=== PATIENT | female | born 1965 | race Caucasian/White ===

== ENCOUNTER 2016-10-16 13:20 | Emergency (ER) | payer OTHER ==
[~2016-10-16] VITALS: Ht 170.2 cm; Wt 56.7 kg
[~2016-10-16 13:20] MED LIST: DIAZ5TAB4 PO; LEVO500T8 PO; MIRT30TA6 PO; MORP30TA PO; PANT40TA5 PO; PROM25TA10 PO; TIZA4TAB PO; TRIA1CAP3 PO; VENL37.5 PO
[2016-10-16 14:35] LABS: BASO # 0.1 x10^3/uL (0.0-0.2); BASO % 1 % (0-3); EOS % 2 % (0-3); HEMATOCRIT 40.1 % (36.0-47.0); HEMOGLOBIN 13.8 g/dL (12.0-15.5); LYMPH # 1.8 x10^3/uL (1.0-4.8); LYMPH % 18 % (24-48); MEAN CORPUSCULAR HEMOGLOBIN 32 pg (25-35); MEAN CORPUSCULAR HGB CONC 35 g/dL (31-37); MEAN CORPUSCULAR VOLUME 93 fL (79-100); MONO % 8 % (0-9); NEUT % 72 % (31-73); PLATELET COUNT 310 x10^3/uL (140-400); RED CELL DISTRIBUTION WIDTH 14.6 % (11.5-14.5); WHITE BLOOD COUNT 9.5 x10^3/uL (4.0-11.0)
[2016-10-16] MEDS: MORPHINE SULFATE 4 MG/ML DISP.SYRIN. IV/SQ PRN ×2 (14:36→15:28)
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
[2016-10-16] MEDS ORDERED: CONTRAST GIVEN MC PRN (14:45)
[2016-10-16] MEDS ORDERED: IV NORMAL SALINE 1000ML BAG 1,000 ML IV SCH (14:45)
[2016-10-16] MEDS ORDERED: ONDANSETRON PF 4 MG/2 ML VIAL. IV ONE (14:45)
[2016-10-16 14:53] LABS: ALBUMIN/GLOBULIN RATIO 1.2 (1.0-1.7); GFR 58.2; TOTAL BILIRUBIN 0.3 mg/dL (0.2-1.0); TOTAL PROTEIN 7.3 g/dL (6.4-8.2)
[2016-10-16] MEDS ORDERED: IOHEXOL 300 MG/ML 75 ML VIAL IV ONE (15:00)
[2016-10-16] MEDS ORDERED: IOHEXOL 240 MG/ML 50ML VIAL. PO ONE (15:00)
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
--- NOTE | 2016-10-16 16:12 | RAD ---
CT scan of the abdomen and pelvis with contrast 10/16/2016 Clinical history: Abdominal pain with weight loss. History of Crohn's disease. Technique: After the oral and intravenous initiation contrast, contiguous, 5 mm axial sections were obtained through the abdomen and pelvis. 60 cc of Omnipaque 300 were administered intravenously during this examination. One or more of the following individualized dose reduction techniques were utilized for this study: 1. Automated exposure control. 2. Adjustment of the mA and/or kV according to patient size. 3. Use of iterative reconstruction technique. Findings: Comparison study is dated 08/02/2015. Images through the lung bases demonstrate minimal dependent subsegmental atelectasis bilaterally. The liver, spleen, adrenal glands and kidneys are within normal limits. Prominence of the main pancreatic duct is again seen. No acute focal abnormality of the pancreas is noted. Surgical clips are seen within the gallbladder fossa consistent with a cholecystectomy. Scattered atherosclerotic plaque formation is seen involving the abdominal aorta and its branches. The abdominal aorta tapers normally. The patient is post colectomy. An ileostomy is seen within the right lower quadrant abdomen. No free fluid or free air is seen within the abdomen. There is no evidence of bowel obstruction. Images through the pelvis demonstrate the urinary bladder distended with urine. No free fluid is seen. The patient is status post hysterectomy. No adnexal mass is noted. Mild S-shaped curvature of the thoracolumbar spine is seen. Degenerative changes are seen involving the lower thoracic and throughout the lumbar spine and both hips. Impression: No acute abnormality is seen.
[2016-10-16 17:30] VITALS: BP 134/79
== END 2016-10-16 17:44 | disposition home or self-care (01) ==
LOC: ER 13:20
DX: G89.29 Other chronic pain (principal); R10.84 Generalized abdominal pain; M54.9 Dorsalgia, unspecified; R07.81 Pleurodynia; R05 Cough; R11.0 Nausea; E87.6 Hypokalemia; M54.2 Cervicalgia; R50.9 Fever, unspecified; F43.10 Post-traumatic stress disorder, unspecified; J44.9 Chronic obstructive pulmonary disease, unspecified; G43.909 Migraine, unspecified, not intractable, without status migrainosus; K50.90 Crohn's disease, unspecified, without complications; I50.9 Heart failure, unspecified; Z90.49 Acquired absence of other specified parts of digestive tract; Z90.710 Acquired absence of both cervix and uterus; Z79.899 Other long term (current) drug therapy; Z87.19 Personal history of other diseases of the digestive system; Z93.2 Ileostomy status; Z88.6 Allergy status to analgesic agent; Z88.8 Allergy status to other drugs, medicaments and biological substances
CPT/HCPCS: 36415; 71010; 74177; 80053; 83690; 85027; 96361; 96374; 96375; 96376; 99285; J2270; J2405; J7030; Q9967

== ENCOUNTER 2017-11-10 12:42 | Emergency (ER) | payer MEDICARE, MEDICAID ==
[~2017-11-10] VITALS: Ht 172.7 cm; Wt 63.0 kg
[~2017-11-10 12:42] MED LIST changes: +AMOX875T PO; +METO5TAB PO; +ONDA4TAB10 SL; +TIOT18CA IH; +VARE1TAB21 PO; +VENL50TA PO; +VENTOLIN HFA18 GM INH
[2017-11-10 13:43] LABS: BILIRUBIN,URINE NEGATIVE (NEG); CLARITY,URINE CLEAR; COLOR,URINE YELLOW; NITRITE,URINE NEGATIVE (NEG); PROTEIN,URINE NEGATIVE (NEG-TRACE); UROBILINOGEN,URINE 0.2 mg/dL (0.2 mg/dL)
[2017-11-10 13:53] LABS: BACTERIA,URINE FEW /HPF (0-FEW); RBC,URINE 0 /HPF (0-2); SQUAMOUS EPITHELIAL CELL,UR FEW /LPF
--- NOTE | 2017-11-10 13:54 | PHYS DOC ---
Past Medical History Past Medical History: CHF, COPD, Glaucoma, High Cholesterol, Hypertension, Migraines, Pancreatitis, Other Additional Past Medical Histor: INTESTINAL BLOCKAGE, CROHNS, PTSD, RLS Past Surgical History: Cholecystectomy, Colectomy, , Hysterectomy Additional Past Surgical Histo: ILEOSTOMY, NECK SURGERY, "ISABEL HAD 16 SURGERIES. " Alcohol Use: Occasionally Drug Use: None, Cocaine Social History Narrative: clean "for years" from cocaine Adult General Chief Complaint Chief Complaint: ABDOMINAL PAIN HPI HPI 51-year-old female presents to ER with complaints of increase in her chronic abd pain over the past 3 wks. Pt has long hx of chronic abd pain associated with hx of Crohn's, pancreatitis, bowel resections, and ileostomy. Pt was seen at [facility] 3 wks ago for similar sxs. She reports in past wk she has had gradual worsening of sxs. She reports she has had N/V which is more dry heaving d/t decreased food/fld intake. She reports multiple episodes of loose/diarrhea output in ileostomy. She reports she has had generalized fatigue, decreased urinary output, and felt warm but hasn't checked her temperature. Review of Systems Review of Systems Constitutional: Denies fever or chills [] Eyes: Denies change in visual acuity, redness, or eye pain [] HENT: Denies nasal congestion or sore throat [] Respiratory: Denies cough or shortness of breath [] Cardiovascular: No additional information not addressed in HPI [] GI: Denies abdominal pain, nausea, vomiting, bloody stools or diarrhea [] : Denies dysuria or hematuria [] Musculoskeletal: Denies back pain or joint pain [] Integument: Denies rash or skin lesions [] Neurologic: Denies headache, focal weakness or sensory changes [] Endocrine: Denies polyuria or polydipsia [] All other systems were reviewed and found to be within normal limits, except as documented in this note. Current Medications Current Medications Current Medications Medications (Trade) Dose Ordered Sig/Leeroy Start Time Stop Time Status Last Admin Dose Admin Dicyclomine HCl (Bentyl) 20 mg 1X ONCE 11/10/17 14:00 11/10/17 14:01 DC 11/10/17 14:29 20 MG Ondansetron HCl (Zofran) 4 mg 1X ONCE 11/10/17 14:00 11/10/17 14:01 DC 11/10/17 14:29 4 MG Sodium Chloride 1,000 ml @ 1,000 mls/hr 1X ONCE 11/10/17 14:00 11/10/17 14:59 DC 11/10/17 14:29 1,000 MLS/HR Allergies Allergies Allergies Coded Allergies Type Severity Reaction Last Updated Verified aspirin Allergy Severe Anaphylaxis; TOLERATES IBUPROFEN 10/29/16 Yes Iodinated Contrast- Oral and IV Dye Allergy Intermediate Hives 02/26/17 Yes prochlorperazine Allergy Intermediate 09/02/15 Yes lorazepam Adverse Reaction Intermediate 02/26/17 Yes Corticosteroids (Glucocorticoids) Adverse Reaction Mild RESTLESS LEG 09/02/15 Yes fluticasone Adverse Reaction Mild 09/02/15 Yes salmeterol Adverse Reaction Mild 09/02/15 Yes Physical Exam Physical Exam Constitutional: Well developed, well nourished, no acute distress, non-toxic appearance. [] HENT: Normocephalic, atraumatic, bilateral external ears normal, mucous membranes pink/moist, no oral exudates, nose normal. [] Eyes: PERRLA, conjunctiva normal, no discharge. [] Neck: Normal range of motion, no tenderness, supple Cardiovascular:Heart rate regular rhythm, no murmur [] Lungs & Thorax: Bilateral breath sounds clear to auscultation. Resp. equal/ nonlabored Abdomen: Bowel sounds normal, soft, diffuse tenderness in rt upper abd into rt mid/lower and surrounding rt lower abd ileostomy- skin NL in color around ileostomy site with no erythema/drainage or swelling. No drainage in ileostomy bag. No abd distention. No palp. masses, no pulsatile masses. [] Skin: Warm, dry, no erythema, no rash. [] Back: No tenderness, full ROM Extremities: No tenderness, no cyanosis, no clubbing, ROM intact, no edema. [] Neurologic: Alert and oriented X 3, normal motor function, normal sensory function, no focal deficits noted. [] Psychologic: Affect normal, judgement normal, mood normal. [] Current Patient Data Vital Signs Vital Signs Date Time Temp Pulse Resp B/P (MAP) Pulse Ox O2 Delivery O2 Flow Rate FiO2 11/10/17 13:22 98.7 99 18 116/81 (93) 97 Room Air 98.7 Lab Values Laboratory Tests Test 11/10/17 13:25 11/10/17 14:35 Urine Collection Type Unknown Urine Color Yellow Urine Clarity Clear Urine pH 6.0 Urine Specific [place] 1.010 Urine Protein Negative mg/dL (NEG-TRACE) Urine Glucose (UA) Negative mg/dL (NEG) Urine Ketones (Stick) Negative mg/dL (NEG) Urine Blood Negative (NEG) Urine Nitrite Negative (NEG) Urine Bilirubin Negative (NEG) Urine Urobilinogen Dipstick 0.2 mg/dL (0.2 mg/dL) Urine Leukocyte Esterase Small (NEG) Urine RBC 0 /HPF (0-2) Urine WBC 5-10 /HPF (0-4) Urine Squamous Epithelial Cells Few /LPF Urine Bacteria Few /HPF (0-FEW) White Blood Count 8.1 x10^3/uL (4.0-11.0) Red Blood Count 4.61 x10^6/uL (3.50-5.40) Hemoglobin 15.3 g/dL (12.0-15.5) Hematocrit 43.9 % (36.0-47.0) Mean Corpuscular Volume 95 fL (79-100) Mean Corpuscular Hemoglobin 33 pg (25-35) Mean Corpuscular Hemoglobin Concent 35 g/dL (31-37) Red Cell Distribution Width 13.4 % (11.5-14.5) Platelet Count 344 x10^3/uL (140-400) Neutrophils (%) (Auto) 68 % (31-73) Lymphocytes (%) (Auto) 23 % (24-48) L Monocytes (%) (Auto) 7 % (0-9) Eosinophils (%) (Auto) 2 % (0-3) Basophils (%) (Auto) 0 % (0-3) Neutrophils # (Auto) 5.5 x10^3uL (1.8-7.7) Lymphocytes # (Auto) 1.8 x10^3/uL (1.0-4.8) Monocytes # (Auto) 0.6 x10^3/uL (0.0-1.1) Eosinophils # (Auto) 0.1 x10^3/uL (0.0-0.7) Basophils # (Auto) 0.0 x10^3/uL (0.0-0.2) Sodium Level 135 mmol/L (136-145) L Potassium Level 3.4 mmol/L (3.5-5.1) L Chloride Level 101 mmol/L (98-107) Carbon Dioxide Level 23 mmol/L (21-32) Anion Gap 11 (6-14) Blood Urea Nitrogen 12 mg/dL (7-20) Creatinine 1.2 mg/dL (0.6-1.0) H Estimated GFR (Cockcroft-Gault) 47.0 BUN/Creatinine Ratio 10 (6-20) Glucose Level 114 mg/dL (70-99) H Calcium Level 9.3 mg/dL (8.5-10.1) Magnesium Level 1.9 mg/dL (1.8-2.4) Total Bilirubin 0.5 mg/dL (0.2-1.0) Aspartate Amino Transferase (AST) 12 U/L (15-37) L Alanine Aminotransferase (ALT) 15 U/L (14-59) Alkaline Phosphatase 89 U/L (46-116) Total Protein 7.7 g/dL (6.4-8.2) Albumin 4.3 g/dL (3.4-5.0) Albumin/Globulin Ratio 1.3 (1.0-1.7) Lipase 128 U/L (73-393) Laboratory Tests 11/10/17 14:35 Laboratory Tests 11/10/17 14:35 EKG EKG [] Radiology/Procedures Radiology/Procedures [] Course & Med Decision Making Course & Med Decision Making 1450: This provider had initially examed pt and discussed plan of care with pt and her dgtr in law. With pt reporting her doctors had removed her off narcotics this provider started with IM Bentyl and IV zofran with flds. RN reported when she went to administer medications pt stated she did not want this provider caring for her any longer and that she wanted additional pain medication within 10 minutes or she would leave and go to another facility. This was discussed with Dr. Manzano and he will assume care of this pt- tests are pending. 15:27: I was asked to see this patient as the patient fired her mid-level provider when she was told she would not receive opiate pain medications. I reviewed the patient's records both from this hospital and [facility] in [place]. I interviewed and examined the patient very carefully. Her abdominal exam is completely benign. She has a right ileostomy that is draining what appears to be appropriate stool. She was evaluated at [facility] on October 17 for a similar presentation. At that visit, she was discharged home and again referred to surgeon and GI but she did not follow-up. She was prescribed tramadol according to the record but review of the [facility] opiate tracking system does not reveal that she fill this prescription. She is insistent that she did. The patient gives me a history of chronic abdominal pain for which she has been intermittently treated with opiates and sometimes with tramadol. The patient is not followed by a surgeon regularly or a GI doctor despite the fact that she has been referred several times according to the electronic medical record. When asked about this, the patient gives prolonged explanations of difficulty she is having in her life and that she is on unable to follow-up. She does state she ran out of her Zofran which she uses regularly for control of nausea a few days earlier. Her lab panel today is unremarkable along with her physical exam. There is no indication for CT scan. Her vital signs are normal. I advised the patient that I also did not treat chronic abdominal pain with opiate medications at which time the patient asks simply for a refill of her Zofran and some tramadol. I advised patient that tramadol is still an opiate medication. Ultimately, the patient is being discharged home. She is provided a prescription for her Zofran as well as a few tramadol for her pain. She is advised to establish care with the appropriate specialist as needed. She does have a primary care doctor in [place], [place] but states he will not prescribe her pain medications. She also states she has pending pain management appointments already scheduled. No acute findings on her workup today. She is discharged home. DO Mary Singletary Disclaimer Mary Disclaimer This electronic medical record was generated, in whole or in part, using a voice recognition dictation system. Departure Departure Referrals: MARY LY MD (PCP) Scripts Tramadol Hcl (TRAMADOL HCL) 50 Mg Tablet 50 MG PO Q12H PRN for severe pain, #30 TAB Prov: ANTWAN MANZANO DO 11/10/17 Ondansetron (ONDANSETRON ODT) 4 Mg Tab.rapdis 4 MG PO TID PRN for NAUSEA/VOMITING, #30 TAB 2 Refills Prov: ANTWAN MANZANO DO 11/10/17 REFFITTAJITH APRN Nov 10, 2017 13:54 ANTWAN MANZANO DO Nov 10, 2017 15:32
[2017-11-10] MEDS ORDERED: DICYCLOMINE 20 MG/2 ML AMPUL. IM ONE (14:00)
[2017-11-10] MEDS ORDERED: IV NORMAL SALINE 1000ML BAG 1,000 ML IV ONE (14:00)
[2017-11-10] MEDS ORDERED: ONDANSETRON PF 4 MG/2 ML VIAL. IV ONE (14:00)
[2017-11-10 14:40] LABS: BASO % 0 % (0-3); EOS # 0.1 x10^3/uL (0.0-0.7); EOS % 2 % (0-3); HEMATOCRIT 43.9 % (36.0-47.0); HEMOGLOBIN 15.3 g/dL (12.0-15.5); LYMPH # 1.8 x10^3/uL (1.0-4.8); LYMPH % 23 % (24-48); MEAN CORPUSCULAR HEMOGLOBIN 33 pg (25-35); MEAN CORPUSCULAR HGB CONC 35 g/dL (31-37); MEAN CORPUSCULAR VOLUME 95 fL (79-100); MONO # 0.6 x10^3/uL (0.0-1.1); MONO % 7 % (0-9); NEUT # 5.5 x10^3uL (1.8-7.7); NEUT % 68 % (31-73); PLATELET COUNT 344 x10^3/uL (140-400); RED BLOOD COUNT 4.61 x10^6/uL (3.50-5.40); RED CELL DISTRIBUTION WIDTH 13.4 % (11.5-14.5); WHITE BLOOD COUNT 8.1 x10^3/uL (4.0-11.0)
[2017-11-10 14:52] LABS: CALCIUM 9.3 mg/dL (8.5-10.1); CREATININE 1.2 mg/dL (0.6-1.0); POTASSIUM 3.4 mmol/L (3.5-5.1)
[2017-11-10 14:58] LABS: ALBUMIN 4.3 g/dL (3.4-5.0); ALBUMIN/GLOBULIN RATIO 1.3 (1.0-1.7); MAGNESIUM 1.9 mg/dL (1.8-2.4); TOTAL BILIRUBIN 0.5 mg/dL (0.2-1.0); TOTAL PROTEIN 7.7 g/dL (6.4-8.2)
[2017-11-10 15:20] VITALS: BP 108/69
[2017-11-10] MEDS ORDERED: ONDA4TAB12 PO (15:25)
[2017-11-10] MEDS ORDERED: TRAM50TA PO (15:25)
--- NOTE | 2017-11-10 17:35 | EKG ---
[facility] [address] [place] [address] Test Date: 2017-11-10 Test Time: 14:23:00 Pat Name: GARCIA LIZARRAGA Department: Room: Gender: F Transport Rn: : 1965 Requested By: AJITH SHARMA Order Number: [id number] Reading MD: Jerald Burnham MD Measurements Intervals [place] Rate: 81 P: 69 NC: 142 QRS: 94 QRSD: 78 T: 76 QT: 366 QTc: 430 Interpretive Statements SINUS RHYTHM Electronically Signed On 11-11-2017 12:32:18 CDT by Jerald Burnham MD
[2017-11-15] MEDS ORDERED: CYCL10TA2 PO (20:11)
[2017-11-15] MEDS ORDERED: [UNRECOGNIZED DRUG - OTHER] (20:11)
[2017-11-15] MEDS ORDERED: QUET25TA5 PO (20:11)
[2017-11-15] MEDS ORDERED: SERT50TA PO (20:11)
[2017-11-15] MEDS ORDERED: POTA10TA12 PO (20:11)
[2017-11-15] MEDS ORDERED: TRAZ-85 PO (20:11)
[2017-11-15] MEDS ORDERED: SUMA100T3 PO (20:11)
[2017-11-16] MEDS ORDERED: TRAZ-85 PO (01:29)
[2017-11-16] MEDS ORDERED: TRAM50TA PO (01:29)
== END 2017-11-10 15:35 | disposition home or self-care (01) ==
LOC: ER 12:42
DX: G89.29 Other chronic pain (principal); R10.84 Generalized abdominal pain; R11.2 Nausea with vomiting, unspecified; R19.7 Diarrhea, unspecified; E78.00 Pure hypercholesterolemia, unspecified; J44.9 Chronic obstructive pulmonary disease, unspecified; I11.0 Hypertensive heart disease with heart failure; I50.9 Heart failure, unspecified; G43.909 Migraine, unspecified, not intractable, without status migrainosus; R53.83 Other fatigue; K50.90 Crohn's disease, unspecified, without complications; F43.10 Post-traumatic stress disorder, unspecified; G25.81 Restless legs syndrome; Z90.49 Acquired absence of other specified parts of digestive tract; Z90.710 Acquired absence of both cervix and uterus; Z93.2 Ileostomy status; Z88.6 Allergy status to analgesic agent; Z88.8 Allergy status to other drugs, medicaments and biological substances; Z91.041 Radiographic dye allergy status
CPT/HCPCS: 36415; 80053; 81001; 83690; 83735; 85025; 87086; 93005; 96361; 96372; 96374; 99285; J0500; J2405; J7030

== ENCOUNTER 2017-11-12 17:43 | Inpatient (IN) | payer MEDICARE, MEDICAID ==
[~2017-11-12] VITALS: Ht 172.7 cm; Wt 61.2 kg
[~2017-11-12 17:43] MED LIST changes: +ONDA4TAB12 PO; +TRAM50TA PO
[2017-11-12] MEDS ORDERED: IV NORMAL SALINE 1000ML BAG 1,000 ML IV SCH (18:27)
[2017-11-12] MEDS ORDERED: DEXAMETHASONE SOD PHOS 4 MG/ML VIAL IV ONE (18:30)
[2017-11-12] MEDS ORDERED: IV NORMAL SALINE 1000ML BAG 1,000 ML IV ONE ×2 (18:30→20:30)
--- NOTE | 2017-11-12 18:32 | PHYS DOC ---
Past Medical History Past Medical History: CHF, COPD, Glaucoma, High Cholesterol, Hypertension, Migraines, Pancreatitis, Other Additional Past Medical Histor: INTESTINAL BLOCKAGE, CROHNS, PTSD, RLS Past Surgical History: Cholecystectomy, Colectomy, , Hysterectomy Additional Past Surgical Histo: ILEOSTOMY, NECK SURGERY, "ISABEL HAD 16 SURGERIES. " Smoking: Cigarettes, 1 Pack Per Day Additional Information: 10 ciggarettes a day Alcohol Use: Occasionally Drug Use: None, Cocaine Adult General Chief Complaint Chief Complaint: DIZZY/LIGHT HEADED HPI HPI Patient is a 51-year-old female who presents to the emergency department for evaluation. She states that for the past few days she has had several episodes of lightheadedness and dizziness, sometimes resulting in her body going limp, and her "eyes rolling back in her head", and she has had a few episodes of actual syncope. She denies any pain, although states she did strike her chest on the toilet in the bathroom and is having some sternal pain because of this. She does have a history of Crohn's disease and states that for the past year she has been having on and off black stools in her ostomy bag, and has been having some recently. She denies any fevers or chills, nausea, or vomiting. Nothing in particular seems to help improve, or worsen, her symptoms, although standing up and position changes do seem to worsen her dizziness. Notes from the patient recent ER visit for a few days ago, as well as her most recent hospitalization in May have been reviewed. Review of Systems Review of Systems Constitutional: Denies fever or chills [] Eyes: Denies change in visual acuity, redness, or eye pain [] HENT: Denies nasal congestion or sore throat [] Respiratory: Denies cough or shortness of breath [] Cardiovascular: The patient denies any shortness of breath, chest pain, palpitations, or orthopnea[] GI: Denies any new abdominal pain, nausea, vomiting, or diarrhea [] : Denies dysuria or hematuria [] Musculoskeletal: Denies back pain or joint pain [] Integument: Denies rash or skin lesions [] Neurologic: Denies headache, focal weakness or sensory changes [] Endocrine: Denies polyuria or polydipsia [] All other systems were reviewed and found to be within normal limits, except as documented in this note. Current Medications Current Medications Current Medications Medications (Trade) Dose Ordered Sig/Leeroy Start Time Stop Time Status Last Admin Dose Admin Dexamethasone Sodium Phosphate (Decadron) 10 mg 1X ONCE 11/12/17 18:30 11/12/17 18:31 DC Potassium Chloride/Sodium Chloride 1,000 ml @ 250 mls/hr 1X ONCE 11/12/17 19:30 11/12/17 23:29 Potassium Chloride (Klor-Con) 40 meq 1X ONCE 11/12/17 19:30 11/12/17 19:31 DC Sodium Chloride 1,000 ml @ 1,000 mls/hr Q1H 11/12/17 18:27 11/12/17 19:26 DC 11/12/17 19:05 1,000 MLS/HR Allergies Allergies Allergies Coded Allergies Type Severity Reaction Last Updated Verified aspirin Allergy Severe Anaphylaxis; TOLERATES IBUPROFEN 10/29/16 Yes Iodinated Contrast- Oral and IV Dye Allergy Intermediate Hives 02/26/17 Yes prochlorperazine Allergy Intermediate 09/02/15 Yes lorazepam Adverse Reaction Intermediate 02/26/17 Yes Corticosteroids (Glucocorticoids) Adverse Reaction Mild RESTLESS LEG 09/02/15 Yes fluticasone Adverse Reaction Mild 09/02/15 Yes salmeterol Adverse Reaction Mild 09/02/15 Yes Physical Exam Physical Exam PHYSICAL EXAM: CONSTITUTIONAL: Well developed, well nourished HEAD: normocephalic, atraumatic EENT: PERRL, EOMI. Conjunctivae appear only mildly pale, sclerae non-icteric; moist mucous membranes. NECK: Supple, non-tender; no meningismus. LUNGS: Lungs CTA, breathing even and unlabored. Normal air movement. HEART: Regular rate and rhythm, no murmur CHEST: No deformity; non-tender ABDOMEN: The abdomen is soft, there is mild diffuse tenderness to palpation without focal tenderness, rebound, or guarding. There is an ostomy in the right lower quadrant, normal bowel sounds are present, no masses or bruits. EXTREM: Normal ROM; no deformity, no calf tenderness. Normal pulses palpable in all extremities. There is no pedal edema. SKIN: No rash; no diaphoresis NEURO: Alert; normal speech and cognition; CN's grossly intact; strength grossly intact without focal deficit. BACK: No CVA TTP. Current Patient Data Vital Signs Vital Signs Date Time Temp Pulse Resp B/P (MAP) Pulse Ox O2 Delivery O2 Flow Rate FiO2 11/12/17 17:59 98.3 83 20 83/56 (65) 95 Room Air 98.3 Lab Values Laboratory Tests Test 11/12/17 18:40 White Blood Count 9.9 x10^3/uL (4.0-11.0) Red Blood Count 3.96 x10^6/uL (3.50-5.40) Hemoglobin 13.1 g/dL (12.0-15.5) Hematocrit 37.8 % (36.0-47.0) Mean Corpuscular Volume 96 fL (79-100) Mean Corpuscular Hemoglobin 33 pg (25-35) Mean Corpuscular Hemoglobin Concent 35 g/dL (31-37) Red Cell Distribution Width 13.0 % (11.5-14.5) Platelet Count 305 x10^3/uL (140-400) Neutrophils (%) (Auto) 57 % (31-73) Lymphocytes (%) (Auto) 30 % (24-48) Monocytes (%) (Auto) 9 % (0-9) Eosinophils (%) (Auto) 4 % (0-3) H Basophils (%) (Auto) 1 % (0-3) Neutrophils # (Auto) 5.6 x10^3uL (1.8-7.7) Lymphocytes # (Auto) 2.9 x10^3/uL (1.0-4.8) Monocytes # (Auto) 0.9 x10^3/uL (0.0-1.1) Eosinophils # (Auto) 0.4 x10^3/uL (0.0-0.7) Basophils # (Auto) 0.0 x10^3/uL (0.0-0.2) Prothrombin Time 11.5 SEC (11.7-14.0) L Prothrombin Time INR 0.9 (0.8-1.1) Sodium Level 132 mmol/L (136-145) L Potassium Level 2.9 mmol/L (3.5-5.1) *L Chloride Level 96 mmol/L (98-107) L Carbon Dioxide Level 23 mmol/L (21-32) Anion Gap 13 (6-14) Blood Urea Nitrogen 27 mg/dL (7-20) H Creatinine 3.4 mg/dL (0.6-1.0) H Estimated GFR (Cockcroft-Gault) 14.1 BUN/Creatinine Ratio 8 (6-20) Glucose Level 104 mg/dL (70-99) H Lactic Acid Level 2.1 mmol/L (0.4-2.0) H Calcium Level 9.1 mg/dL (8.5-10.1) Phosphorus Level 7.1 mg/dL (2.6-4.7) H Magnesium Level 2.1 mg/dL (1.8-2.4) Total Bilirubin 0.1 mg/dL (0.2-1.0) L Aspartate Amino Transferase (AST) 11 U/L (15-37) L Alanine Aminotransferase (ALT) 15 U/L (14-59) Alkaline Phosphatase 103 U/L (46-116) Creatine Kinase 152 U/L (26-192) Creatine Kinase MB (Mass) 2.0 ng/mL (0.0-3.6) Creatine Kinase MB Relative Index 1.3 % (0-4) Troponin I Quantitative < 0.017 ng/mL (0.000-0.055) AQ-Dmi-C-Type Natriuretic Peptide 52 pg/mL (0-124) Total Protein 6.7 g/dL (6.4-8.2) Albumin 3.5 g/dL (3.4-5.0) Albumin/Globulin Ratio 1.1 (1.0-1.7) Lipase 230 U/L (73-393) Thyroid Stimulating Hormone (TSH) 0.655 uIU/mL (0.358-3.74) Free Thyroxine 0.79 ng/dL (0.76-1.46) Laboratory Tests 11/12/17 18:40 Laboratory Tests 11/12/17 18:40 EKG EKG [Normal sinus rhythm at a rate of 80 beats for minute, normal axis, normal intervals, there are no acute ischemic ST/T changes.] Radiology/Procedures Radiology/Procedures [ER physician preliminary chest x-ray interpretation: No acute abnormality. No obvious sternal fracture noted on sternal x-ray.] Course & Med Decision Making Course & Med Decision Making Pertinent Labs and Imaging studies reviewed. (See chart for details) [7:35 PM: Pt condition remains stable. US currently pending. she appears to be in acute renal failure, renal function was normal 2 days ago. Aggressive IV hydration will be initiated. The patient declined Decadron, stating it causes restless leg syndrome and agitation. She does have a history of steroid use given her Crohn's disease, and adrenal insufficiency is on the differential. The patient declined corticosteroids. I discussed the case with the hospitalist and the patient be admitted for further evaluation and treatment.] Urinalysis will be followed by the admitting physician. CRITICAL CARE TIME: 45 Minutes, excluding any procedures and care of other patients. Dragon Disclaimer Dragon Disclaimer This electronic medical record was generated, in whole or in part, using a voice recognition dictation system. Departure Departure Impression: Primary Impression: Acute renal failure Additional Impressions: Hypokalemia Hypertension Disposition: 09 ADMITTED INPATIENT Admitting Physician: Kaila Watson Condition: GUARDED Referrals: MARY LY MD (PCP) Problem Qualifiers DAILY CORLEY MD Nov 12, 2017 18:32
[2017-11-12 18:50] LABS: BASO % 1 % (0-3); EOS # 0.4 x10^3/uL (0.0-0.7); EOS % 4 % (0-3); HEMATOCRIT 37.8 % (36.0-47.0); HEMOGLOBIN 13.1 g/dL (12.0-15.5); LYMPH # 2.9 x10^3/uL (1.0-4.8); LYMPH % 30 % (24-48); MEAN CORPUSCULAR HEMOGLOBIN 33 pg (25-35); MEAN CORPUSCULAR HGB CONC 35 g/dL (31-37); MEAN CORPUSCULAR VOLUME 96 fL (79-100); MONO # 0.9 x10^3/uL (0.0-1.1); MONO % 9 % (0-9); NEUT # 5.6 x10^3uL (1.8-7.7); NEUT % 57 % (31-73); PLATELET COUNT 305 x10^3/uL (140-400); RED BLOOD COUNT 3.96 x10^6/uL (3.50-5.40); WHITE BLOOD COUNT 9.9 x10^3/uL (4.0-11.0)
[2017-11-12 18:59] LABS: PROTHROMBIN TIME PATIENT 11.5 SEC (11.7-14.0)
[2017-11-12 19:17] LABS: ALBUMIN 3.5 g/dL (3.4-5.0); ALBUMIN/GLOBULIN RATIO 1.1 (1.0-1.7); CALCIUM 9.1 mg/dL (8.5-10.1); CREATININE 3.4 mg/dL (0.6-1.0); FREE T4 0.79 ng/dL (0.76-1.46); GFR 14.1; MAGNESIUM 2.1 mg/dL (1.8-2.4); PHOSPHORUS 7.1 mg/dL (2.6-4.7); THYROID STIM HORMONE (TSH) 0.655 uIU/mL (0.358-3.74); TOTAL BILIRUBIN 0.1 mg/dL (0.2-1.0); TOTAL PROTEIN 6.7 g/dL (6.4-8.2)
[2017-11-12 19:19] LABS: POTASSIUM 2.9 mmol/L (3.5-5.1)
[2017-11-12] MEDS ORDERED: POTASSIUM CHLORIDE 20 MEQ TABLET.ER. PO ONE (19:30)
[2017-11-12 19:53] LABS: BILIRUBIN,URINE NEGATIVE (NEG); CLARITY,URINE CLEAR; COLOR,URINE YELLOW; NITRITE,URINE NEGATIVE (NEG); PH,URINE 5.5; PROTEIN,URINE NEGATIVE (NEG-TRACE); UROBILINOGEN,URINE 0.2 mg/dL (0.2 mg/dL)
[2017-11-12 19:58] LABS: BACTERIA,URINE FEW /HPF (0-FEW); HYALINE CASTS, URINE MODERATE /HPF; RBC,URINE OCC /HPF (0-2); SQUAMOUS EPITHELIAL CELL,UR MOD /LPF
[2017-11-12] MEDS ORDERED: IV RINGERS,LACTATED 1000ML 1,000 ML IV ONE (20:00)
[2017-11-12] MEDS ORDERED: ONDANSETRON ODT 4 MG TAB.RAPDIS. PO PRN (20:15)
--- NOTE | 2017-11-12 20:24 | PDOC1 ---
History and Physical Date of Admission Date of Admission DATE: 11/12/17 TIME: 20:16 Identification/Chief Complaint Chief Complaint passed out Source Source: Chart review, Patient History of Present Illness History of Present Illness Ms. Moralez, is a 51-year-old female admit for passing out./ She describes having a headache, severe headache, then "lost control of her arms and legs" she reports that "her eyes rolled into the back of her head and she passed out" and that her body went limp she fell and struck her chest on the toilet, and now has reproducible chest pain. Past few days she has not felt with lightheadedness and dizziness, has had a lot of output from her ostomy and she thinks she might be dehydrated, and feels thirsty now. She does have a history of Crohn's disease and that has ostomy now. she reports some black stools and some heamturia that has persisted for some time, without hesitation or urgency or pain. . She denies any fevers or chills, nausea, or vomiting. Nothing in particular seems to help improve, or worsen, her symptoms Past Medical History Cardiovascular: CHF, HTN, Hyperlipidemia Pulmonary: Bronchitis, COPD GI: Inflam bowel disease, Other Musculoskeletal: Osteoarthritis Endocrine: No pertinent hx Dermatology: No pertinent hx Past Surgical History Past Surgical History: Cholecystectomy, Hysterectomy, Colon Resection Family History Family History: No Significant Social History Smoke: 1 pack per day ALCOHOL: rare Drugs: Cocaine Current Problem List Problem List Problems Medical Problems: (1) Acute renal failure Status: Acute (2) Hypertension Status: Acute (3) Hypokalemia Status: Acute Current Medications Current Medications Current Medications Sodium Chloride 1,000 ml @ 1,000 mls/hr 1X ONCE IV ; Start 11/12/17 at 18:30; Stop 11/12/17 at 19:29; Status DC Sodium Chloride 1,000 ml @ 1,000 mls/hr Q1H IV Last administered on 11/12/17at 19:05; Start 11/12/17 at 18:27; Stop 11/12/17 at 19:26; Status DC Dexamethasone Sodium Phosphate (Decadron) 10 mg 1X ONCE IV ; Start 11/12/17 at 18:30; Stop 11/12/17 at 18:31; Status DC Potassium Chloride (Klor-Con) 40 meq 1X ONCE PO ; Start 11/12/17 at 19:30; Stop 11/12/17 at 19:31; Status DC Potassium Chloride/Sodium Chloride 1,000 ml @ 250 mls/hr 1X ONCE IV ; Start at 19:30; Stop 11/12/17 at 23:29 Ringer's Solution 1,000 ml @ 150 mls/hr 1X ONCE IV ; Start 11/12/17 at 20:00; Stop 11/13/17 at 02:39 Active Scripts Active Tramadol Hcl 50 Mg Tablet 50 Mg PO Q12H PRN Ondansetron Odt (Ondansetron) 4 Mg Tab.rapdis 4 Mg PO TID PRN Metoclopramide Hcl 5 Mg Tablet 5 Mg PO QIDACHS Zofran Odt (Ondansetron) 4 Mg Tab.rapdis 1 Tab SL Q6HRS PRN Diazepam 5 Mg Tablet 5 Mg PO PRN Q6HRS PRN Reported Chantix (Varenicline Tartrate) 1 Mg Tablet 1 Mg PO DAILY Ventolin Hfa Inhaler (Albuterol Sulfate) 18 Gm Hfa.aer.ad 2 Puff INH Q4HRS PRN Spiriva (Tiotropium Van) 18 Mcg Cap.w.dev 1 Cap IH DAILY Venlafaxine Hcl 50 Mg Tablet 50 Mg PO TID Mirtazapine 30 Mg Tab.rapdis 30 Mg PO QHS Tizanidine Hcl 4 Mg Tablet 4 Mg PO PRN Q6HRS PRN Triamterene-Hctz 37.5-25 Mg Cp (Triamterene/Hydrochlorothiazid) 1 Each Capsule 1 Tab PO DAILY Morphine Sulfate 30 Mg Tablet 30 Mg PO PRN Q6HRS PRN Pantoprazole Sodium 40 Mg Tablet.dr 40 Mg PO DAILY Allergies Allergies: Coded Allergies: aspirin (Verified Allergy, Severe, Anaphylaxis; TOLERATES IBUPROFEN, ) Iodinated Contrast- Oral and IV Dye (Verified Allergy, Intermediate, Hives , 02/26/17) prochlorperazine (Verified Allergy, Intermediate, 09/02/15) lorazepam (Verified Adverse Reaction, Intermediate, 02/26/17) Corticosteroids (Glucocorticoids) (Verified Adverse Reaction, Mild, RESTLESS LEG, 09/02/15) fluticasone (Verified Adverse Reaction, Mild, 09/02/15) RESTLESS LEG salmeterol (Verified Adverse Reaction, Mild, 09/02/15) RESTLESS LEG ROS General: No: Chills, Night Sweats, Fatigue, Malaise, Appetite, Other PSYCHOLOGICAL ROS: No: Anxiety, Behavioral Disorder, Concentration difficultie , Decreased libido, Depression, Disorientation, Hallucinations, Hostility, Irritablity, Memory difficulties, Mood Swings, Obsessive thoughts, Physical abuse, Sexual abuse, Sleep disturbances, Suicidal ideation, Other Eyes: No Blurry vision, No Decreased vision, No Double vision, No Dry eyes, No Excessive tearing, No Eye Pain, No Itchy Eyes, No Loss of vision, No Photophobia , No Scotomata, No Uses contacts, No Uses glasses, No Other HEENT: YES: Heacaches; No: Visual Changes, Hearing change, Nasal congestion, Nasal discharge, Oral lesions, Sinus pain, Sore Throat, Epistaxis, Sneezing, Snoring, Tinnitus, Vertigo, Vocal changes, Other Respiratory: No: Cough, Hemoptysis, Orthopnea, Pleuritic Pain, Shortness of breath, SOB with excertion, Sputum Changes, Stridor, Tachypnea, Wheezing, Other Cardiovascular: No Chest Pain, No Palpitations, No Orthopnea, No Paroxysmal Noc. Dyspnea, No Edema, No Lt Headedness, No Other Gastrointestinal: Yes Nausea, Yes Abdominal Pain, Yes Other (gas); No Vomiting, No Diarrhea, No Constipation, No Melena, No Hematochezia Genitourinary: No Dysuria, No Frequency, No Incontinence, No Hematuria, No Retention, No Discharge, No Urgency, No Pain, No Flank Pain, No Other, No , No , No , No , No , No , No Musculoskeletal: No Gait Disturbance, No Joint Pain, No Joint Stiffness, No Joint Swelling, No Muscle Pain, No Muscular Weakness, No Pain In:, No Swelling In:, No Other Neurological: Yes Headaches, Yes Impaired Coord/balance, Yes Tremors, Yes Weakness, Yes Other ("eyes roll back and I pass out":); No Behavorial Changes, No Bowel/Bladder ControlChng, No Confusion, No Dizziness, No Gait Disturbance, No Memory Loss, No Numbness/Tingling, No Seizures, No Speech Problems, No Visual Changes Skin: Yes Dry Skin; No Eczema, No Hair Changes, No Lumps, No Mole Changes, No Mottling, No Nail Changes, No Pruritus, No Rash, No Skin Lesion Changes, No Other, No Acne Physical Exam General: Alert, Oriented X3, Cooperative, mild distress HEENT: Atraumatic, PERRLA, EOMI Lungs: Clear to auscultation, Normal air movement Heart: RRR, no thrills, no gallops, no murmurs Abdomen: Soft, Other (ostomy, liquid stool audible gas) Extremities: No clubbing, No edema Skin: No rashes, No significant lesion Neuro: Normal speech, Sensation intact Psych/Mental Status: Mental status NL, Mood NL Vitals Vitals Vital Signs Date Time Temp Pulse Resp B/P (MAP) Pulse Ox O2 Delivery O2 Flow Rate FiO2 11/12/17 17:59 98.3 83 20 83/56 (65) 95 Room Air 98.3 Labs Labs Laboratory Tests Test 11/12/17 18:40 11/12/17 19:40 White Blood Count 9.9 x10^3/uL (4.0-11.0) Red Blood Count 3.96 x10^6/uL (3.50-5.40) Hemoglobin 13.1 g/dL (12.0-15.5) Hematocrit 37.8 % (36.0-47.0) Mean Corpuscular Volume 96 fL (79-100) Mean Corpuscular Hemoglobin 33 pg (25-35) Mean Corpuscular Hemoglobin Concent 35 g/dL (31-37) Red Cell Distribution Width 13.0 % (11.5-14.5) Platelet Count 305 x10^3/uL (140-400) Neutrophils (%) (Auto) 57 % (31-73) Lymphocytes (%) (Auto) 30 % (24-48) Monocytes (%) (Auto) 9 % (0-9) Eosinophils (%) (Auto) 4 % (0-3) Basophils (%) (Auto) 1 % (0-3) Neutrophils # (Auto) 5.6 x10^3uL (1.8-7.7) Lymphocytes # (Auto) 2.9 x10^3/uL (1.0-4.8) Monocytes # (Auto) 0.9 x10^3/uL (0.0-1.1) Eosinophils # (Auto) 0.4 x10^3/uL (0.0-0.7) Basophils # (Auto) 0.0 x10^3/uL (0.0-0.2) Prothrombin Time 11.5 SEC (11.7-14.0) Prothromb Time International Ratio 0.9 (0.8-1.1) Sodium Level 132 mmol/L (136-145) Potassium Level 2.9 mmol/L (3.5-5.1) Chloride Level 96 mmol/L (98-107) Carbon Dioxide Level 23 mmol/L (21-32) Anion Gap 13 (6-14) Blood Urea Nitrogen 27 mg/dL (7-20) Creatinine 3.4 mg/dL (0.6-1.0) Estimated GFR (Cockcroft-Gault) 14.1 BUN/Creatinine Ratio 8 (6-20) Glucose Level 104 mg/dL (70-99) Lactic Acid Level 2.1 mmol/L (0.4-2.0) Calcium Level 9.1 mg/dL (8.5-10.1) Phosphorus Level 7.1 mg/dL (2.6-4.7) Magnesium Level 2.1 mg/dL (1.8-2.4) Total Bilirubin 0.1 mg/dL (0.2-1.0) Aspartate Amino Transf (AST/SGOT) 11 U/L (15-37) Alanine Aminotransferase (ALT/SGPT) 15 U/L (14-59) Alkaline Phosphatase 103 U/L (46-116) Creatine Kinase 152 U/L (26-192) Creatine Kinase MB (Mass) 2.0 ng/mL (0.0-3.6) Creatine Kinase MB Relative Index 1.3 % (0-4) Troponin I Quantitative < 0.017 ng/mL (0.000-0.055) EP-Vii-O-Type Natriuretic Peptide 52 pg/mL (0-124) Total Protein 6.7 g/dL (6.4-8.2) Albumin 3.5 g/dL (3.4-5.0) Albumin/Globulin Ratio 1.1 (1.0-1.7) Lipase 230 U/L (73-393) Thyroid Stimulating Hormone (TSH) 0.655 uIU/mL (0.358-3.74) Free Thyroxine 0.79 ng/dL (0.76-1.46) Urine Collection Type Unknown Urine Color Yellow Urine Clarity Clear Urine pH 5.5 Urine Specific [place] 1.015 Urine Protein Negative mg/dL (NEG-TRACE) Urine Glucose (UA) Negative mg/dL (NEG) Urine Ketones (Stick) Negative mg/dL (NEG) Urine Blood Negative (NEG) Urine Nitrite Negative (NEG) Urine Bilirubin Negative (NEG) Urine Urobilinogen Dipstick 0.2 mg/dL (0.2 mg/dL) Urine Leukocyte Esterase Trace (NEG) Urine RBC Occ /HPF (0-2) Urine WBC 1-4 /HPF (0-4) Urine Squamous Epithelial Cells Mod /LPF Urine Bacteria Few /HPF (0-FEW) Urine Hyaline Casts Moderate /HPF Urine Mucus Slight /LPF Laboratory Tests Test 11/12/17 18:40 11/12/17 19:40 White Blood Count 9.9 x10^3/uL (4.0-11.0) Red Blood Count 3.96 x10^6/uL (3.50-5.40) Hemoglobin 13.1 g/dL (12.0-15.5) Hematocrit 37.8 % (36.0-47.0) Mean Corpuscular Volume 96 fL (79-100) Mean Corpuscular Hemoglobin 33 pg (25-35) Mean Corpuscular Hemoglobin Concent 35 g/dL (31-37) Red Cell Distribution Width 13.0 % (11.5-14.5) Platelet Count 305 x10^3/uL (140-400) Neutrophils (%) (Auto) 57 % (31-73) Lymphocytes (%) (Auto) 30 % (24-48) Monocytes (%) (Auto) 9 % (0-9) Eosinophils (%) (Auto) 4 % (0-3) Basophils (%) (Auto) 1 % (0-3) Neutrophils # (Auto) 5.6 x10^3uL (1.8-7.7) Lymphocytes # (Auto) 2.9 x10^3/uL (1.0-4.8) Monocytes # (Auto) 0.9 x10^3/uL (0.0-1.1) Eosinophils # (Auto) 0.4 x10^3/uL (0.0-0.7) Basophils # (Auto) 0.0 x10^3/uL (0.0-0.2) Prothrombin Time 11.5 SEC (11.7-14.0) Prothromb Time International Ratio 0.9 (0.8-1.1) Sodium Level 132 mmol/L (136-145) Potassium Level 2.9 mmol/L (3.5-5.1) Chloride Level 96 mmol/L (98-107) Carbon Dioxide Level 23 mmol/L (21-32) Anion Gap 13 (6-14) Blood Urea Nitrogen 27 mg/dL (7-20) Creatinine 3.4 mg/dL (0.6-1.0) Estimated GFR (Cockcroft-Gault) 14.1 BUN/Creatinine Ratio 8 (6-20) Glucose Level 104 mg/dL (70-99) Lactic Acid Level 2.1 mmol/L (0.4-2.0) Calcium Level 9.1 mg/dL (8.5-10.1) Phosphorus Level 7.1 mg/dL (2.6-4.7) Magnesium Level 2.1 mg/dL (1.8-2.4) Total Bilirubin 0.1 mg/dL (0.2-1.0) Aspartate Amino Transf (AST/SGOT) 11 U/L (15-37) Alanine Aminotransferase (ALT/SGPT) 15 U/L (14-59) Alkaline Phosphatase 103 U/L (46-116) Creatine Kinase 152 U/L (26-192) Creatine Kinase MB (Mass) 2.0 ng/mL (0.0-3.6) Creatine Kinase MB Relative Index 1.3 % (0-4) Troponin I Quantitative < 0.017 ng/mL (0.000-0.055) MF-Vik-B-Type Natriuretic Peptide 52 pg/mL (0-124) Total Protein 6.7 g/dL (6.4-8.2) Albumin 3.5 g/dL (3.4-5.0) Albumin/Globulin Ratio 1.1 (1.0-1.7) Lipase 230 U/L (73-393) Thyroid Stimulating Hormone (TSH) 0.655 uIU/mL (0.358-3.74) Free Thyroxine 0.79 ng/dL (0.76-1.46) Urine Collection Type Unknown Urine Color Yellow Urine Clarity Clear Urine pH 5.5 Urine Specific [place] 1.015 Urine Protein Negative mg/dL (NEG-TRACE) Urine Glucose (UA) Negative mg/dL (NEG) Urine Ketones (Stick) Negative mg/dL (NEG) Urine Blood Negative (NEG) Urine Nitrite Negative (NEG) Urine Bilirubin Negative (NEG) Urine Urobilinogen Dipstick 0.2 mg/dL (0.2 mg/dL) Urine Leukocyte Esterase Trace (NEG) Urine RBC Occ /HPF (0-2) Urine WBC 1-4 /HPF (0-4) Urine Squamous Epithelial Cells Mod /LPF Urine Bacteria Few /HPF (0-FEW) Urine Hyaline Casts Moderate /HPF Urine Mucus Slight /LPF VTE Prophylaxis Ordered VTE Prophylaxis Devices: No VTE Pharmacological Prophylaxi: Yes Assessment/Plan Assessment/Plan syncope, with myoclonus, ? witnessed, acute renal failure, hyperphos and hypokalemia check renal US, hematuria, she reports longstanding, ISC prn, check renal US, may need uro consult UA pending tobacco use disorder with probable hx of COPD, nebs, smoking cessation, patch and gum ordered diarrhea from ostomy, NOS' admit ESTUARDO XIONG MD Nov 12, 2017 20:24
[2017-11-12] MEDS ORDERED: ALBUTEROL SULFATE 2.5 MG/3 ML NEBU. NEB PRN (20:30)
[2017-11-12] MEDS ORDERED: NICOTINE POLACRILEX 2MG GUM PACKAGE of 12. BC PRN (20:30)
[2017-11-12] MEDS ORDERED: NICOTINE 21MG PATCH. TD PRN (20:30)
[2017-11-12] MEDS ORDERED: VENLAFAXINE 50 MG TABLET. PO SCH (21:00)
[2017-11-12] MEDS ORDERED: MIRTAZAPINE 15 MG TABLET PO SCH (21:00)
[2017-11-12] MEDS ORDERED: METOCLOPRAMIDE 5 MG TABLET. PO SCH (21:00)
--- NOTE | 2017-11-12 22:11 | RAD ---
Examination: Ultrasound kidneys HISTORY: History of blood in the urine, acute renal failure COMPARISON: None available Findings: The right kidney measures 9.9 x 4.9 x 4.8 cm. The left kidney measures 11.2 x 4.0 x 4.3 cm. The visualized aorta, IVC appear within normal limits of dimension. No evidence of hydronephrosis. Bilateral ureteral jets identified. Urinary bladder is mildly distended. IMPRESSION: 1. Unremarkable visualized exam. Electronically signed by: Silver Marr MD (11/12/2017 10:08 PM) [facility]
[2017-11-12] MEDS ORDERED: QUET50TA5 PO (22:33)
[2017-11-12] MEDS ORDERED: SERT25TA PO (22:33)
[2017-11-12] MEDS ORDERED: GABA-586 PO (22:33)
[2017-11-12] MEDS ORDERED: SUMA100T4 PO (22:33)
[2017-11-12] MEDS ORDERED: QUET25TA5 PO (22:33)
[2017-11-12] MEDS: traMADol 50 MG TABLET PO PRN (22:36)
[2017-11-12] MEDS: diazePAM 5 MG TABLET PO PRN (22:44)
[2017-11-12 23:00] VITALS: BP 95/54
[2017-11-12] MEDS ORDERED: SUMAtriptan SUCCINATE 100 MG TABLET PO PRN (23:15)
[2017-11-12] MEDS ORDERED: ZOLPIDEM 5 MG TABLET. PO PRN (23:30)
[2017-11-13] VITALS (11 sets, daily range): BP systolic 87–102; BP diastolic 54–72
--- NOTE | 2017-11-13 01:17 | RAD ---
Sternum AP lateral x-rays 2 views HISTORY: Trauma, fall, sternal pain. FINDINGS: Somewhat limited visualization of the sternum and manubrium on the frontal film due to summation density of the overlapping ribs, although the combined AP and lateral x-rays demonstrate no fracture or dislocation of the sternum and manubrium. Given obliquity of the AP film there may be limited assessment for mild distraction of the sternoclavicular joints. IMPRESSION: No acute osseous injury. AP chest x-ray HISTORY: Fall, midsternal chest pain. FINDINGS: Heart size is normal. Mediastinal silhouette is normal. No pneumothorax, pulmonary opacities or pleural effusions. Bones are unremarkable. IMPRESSION: No acute process. Electronically signed by: Kobe Myers MD (11/13/2017 1:14 AM) [id number]
[2017-11-13] MEDS: tiZANidine 4 MG TABLET. PO PRN ×3 (05:01→23:38)
[2017-11-13] MEDS: traMADol 50 MG TABLET PO PRN ×2 (05:01→18:40)
--- NOTE | 2017-11-13 07:33 | EKG ---
[facility] [address] [place] [address] Test Date: 2017-11-12 Test Time: 19:20:52 Pat Name: GARCIA LIZARRAGA Department: Room: 526 1 Gender: F Commissions Coordinator: : 1965 Requested By: DAILY CORLEY Order Number: [id number] Reading MD: Jerald Burnham MD Measurements Intervals [place] Rate: 80 P: 69 ID: [id number] QRS: 80 QRSD: 82 T: 53 QT: 398 QTc: 463 Interpretive Statements SINUS RHYTHM Electronically Signed On 11-13-2017 8:58:20 CDT by Jerald Burnham MD
[2017-11-13] MEDS: IPRATRPIUM/ALBUTEROL 0.5/2.5MG 3 ML NEBU. NEB SCH ×2 (08:00→12:00)
[2017-11-13 08:01] LABS: BASO % 1 % (0-3); EOS # 0.2 x10^3/uL (0.0-0.7); EOS % 3 % (0-3); HEMATOCRIT 34.3 % (36.0-47.0); HEMOGLOBIN 11.8 g/dL (12.0-15.5); LYMPH # 2.3 x10^3/uL (1.0-4.8); LYMPH % 31 % (24-48); MEAN CORPUSCULAR HEMOGLOBIN 33 pg (25-35); MEAN CORPUSCULAR HGB CONC 35 g/dL (31-37); MEAN CORPUSCULAR VOLUME 96 fL (79-100); MONO # 0.6 x10^3/uL (0.0-1.1); MONO % 9 % (0-9); NEUT # 4.2 x10^3uL (1.8-7.7); NEUT % 56 % (31-73); PLATELET COUNT 259 x10^3/uL (140-400); RED BLOOD COUNT 3.58 x10^6/uL (3.50-5.40); RED CELL DISTRIBUTION WIDTH 12.8 % (11.5-14.5); WHITE BLOOD COUNT 7.5 x10^3/uL (4.0-11.0)
[2017-11-13 08:19] LABS: CALCIUM 7.8 mg/dL (8.5-10.1); CREATININE 1.4 mg/dL (0.6-1.0); GFR 39.3; POTASSIUM 3.7 mmol/L (3.5-5.1)
[2017-11-13] MEDS: SERTRALINE 25 MG TABLET. PO SCH (08:37)
[2017-11-13] MEDS: GABAPENTIN 100 MG CAPSULE. PO SCH ×3 (08:37→20:53)
[2017-11-13] MEDS: QUEtiapine 25 MG TABLET. PO SCH ×2 (08:37→14:53)
[2017-11-13] MEDS: PANTOPRAZOLE 40 MG TABLET.DR. PO SCH (08:37)
[2017-11-13] MEDS ORDERED: TRIAMTERENE/HCTZ 37.5/25MG TABLET. PO SCH (09:00)
[2017-11-13] MEDS ORDERED: SERTRALINE 50 MG TABLET. PO SCH (09:00)
[2017-11-13] MEDS ORDERED: NON FORMULARY ITEM (Tiotropium Bromide (Spiriva) 1 CAP) IH SCH (09:00)
--- NOTE | 2017-11-13 10:02 | PDOC2 ---
CONSULT Date of Consult Date of Consult DATE: 11/13/17 TIME: 09:48 Reason for Consult Reason for Consult: PATRIA Source Source: Chart review, Patient History of Present Illness Reason for Visit: Patient is a 51-year-old female who presented to the ED with c/o several episodes of lightheadedness and dizziness,going on for the past few days , sometimes resulting in her body going limp, and her "eyes rolling back in her head", with few episodes of actual syncope. Standing up and position changes do seem to worsen her dizziness. She denies any pain, although states she did strike her chest on the toilet in the bathroom and is having some sternal pain because of this. She have a history of Crohn's disease and states that for the past year she has been having on and off black stools in her ostomy bag, and has been having some recently. She denies any fevers or chills, nausea, or vomiting. Most recent Hosp May 2017 States she has Chronic pains- Spine, pancreas, Henia. Has been taking Ibuprofen OTC for many years - 200 mg 4 times/day every day She states for past 4-5 Months her UOP declines Intermittently, she has minimum UOP . Denies any Dysuria, Hmeaturia. Used to have UTI's when she was Younger. No Hx of Kidney stones Aggressive IV in ER , she declined steroids Past Medical History Cardiovascular: CHF, HTN, Hyperlipidemia Pulmonary: Bronchitis, COPD GI: Inflam bowel disease, Other Musculoskeletal: Osteoarthritis Endocrine: No pertinent hx Dermatology: No pertinent hx Past Surgical History Past Surgical History: Cholecystectomy, Hysterectomy, Colon Resection Family History Family History: No Significant Social History 1 pack per day ALCOHOL: rare Drugs: Cocaine Current Problem List Problem List Problems Medical Problems: (1) Acute renal failure Status: Acute (2) Hypertension Status: Acute (3) Hypokalemia Status: Acute Current Medications Current Medications Current Medications Sodium Chloride 1,000 ml @ 1,000 mls/hr 1X ONCE IV Last administered on at 20:12; Start 11/12/17 at 18:30; Stop 11/12/17 at 19:29; Status DC Sodium Chloride 1,000 ml @ 1,000 mls/hr Q1H IV Last administered on 11/12/17at 19:05; Start 11/12/17 at 18:27; Stop 11/12/17 at 19:26; Status DC Dexamethasone Sodium Phosphate (Decadron) 10 mg 1X ONCE IV ; Start 11/12/17 at 18:30; Stop 11/12/17 at 18:31; Status DC Potassium Chloride (Klor-Con) 40 meq 1X ONCE PO Last administered on 11/12/17at 20:12; Start 11/12/17 at 19:30; Stop 11/12/17 at 19:31; Status DC Potassium Chloride/Sodium Chloride 1,000 ml @ 250 mls/hr 1X ONCE IV Last administered on 11/12/17at 20:11; Start 11/12/17 at 19:30; Stop 11/12/17 at 23:29; Status DC Ringer's Solution 1,000 ml @ 150 mls/hr 1X ONCE IV ; Start 11/12/17 at 20:00; Stop 11/13/17 at 02:39; Status DC Diazepam (Valium) 5 mg PRN Q6HRS PRN PO ANXIETY / AGITATION Last administered on 11/12/17at 22:44; Start 11/12/17 at 20:15 Metoclopramide HCl (Reglan) 5 mg QIDACHS PO ; Start 11/12/17 at 21:00; Stop at 23:24; Status DC Ondansetron HCl (Zofran Odt) 4 mg PRN TID PRN PO NAUSEA/VOMITING; Start at 20:15 Pantoprazole Sodium (Protonix) 40 mg DAILYAC PO Last administered on 11/13/17at 08:37; Start 11/13/17 at 07:30 Tramadol HCl (Ultram) 50 mg PRN Q6HRS PRN PO pain Last administered on at 05:01; Start 11/12/17 at 20:15 Albuterol Sulfate (Ventolin Neb Soln) 2.5 mg PRN Q4HRS PRN NEB SHORTNESS OF BREATH; Start 11/12/17 at 20:30 Mirtazapine (Remeron) 30 mg QHS PO ; Start 11/12/17 at 21:00; Stop 11/12/17 at 23: 24; Status DC Non-Formulary Medication (Tiotropium Eddy (Spiriva)) 1 cap DAILY IH ; Start 11/13/17 at 09:00; Status UNV Tizanidine HCl (Zanaflex) 4 mg PRN Q6HRS PRN PO MUSCLE SPASMS Last administered on 11/13/17at 05:01; Start 11/12/17 at 20:30 Triamterene/HCTZ (Maxzide 37.5/ 25mg) 1 tab DAILY PO ; Start 11/13/17 at 09:00; Stop 11/13/17 at 09:00; Status DC Venlafaxine HCl (Effexor) 50 mg TID PO ; Start 11/12/17 at 21:00; Stop 11/12/17 at 23:24; Status DC Sertraline HCl (Zoloft) 50 mg DAILY PO ; Start 11/13/17 at 09:00; Stop 11/13/17 at 09:00; Status DC Nicotine (Nicoderm Cq 21mg) 1 patch PRN DAILY PRN TD SMOKING CESSATION 1ST CHOICE; Start 11/12/17 at 20:30 Nicotine Polacrilex (Nicorette Gum) 1 each PRN Q1HR PRN BC SMOKING CESSATION 2ND CHOICE; Start 11/12/17 at 20:30 Sodium Chloride 1,000 ml @ 100 mls/hr 1X ONCE IV Last administered on at 22:44; Start 11/12/17 at 20:30; Stop 11/13/17 at 06:29; Status DC Albuterol/ Ipratropium (Duoneb) 3 ml RTQID NEB ; Start 11/13/17 at 08:00 Sumatriptan Succinate (Imitrex) 100 mg PRN DAILY PRN PO MIGRAINE HEADACHE; Start 11/12/17 at 23:15 Gabapentin (Neurontin) 100 mg TID PO Last administered on 11/13/17at 08:37; Start 11/13/17 at 09:00 Quetiapine Fumarate (SEROquel) 25 mg TID PO Last administered on 11/13/17at 08:37 ; Start 11/13/17 at 09:00 Quetiapine Fumarate (SEROquel) 50 mg QHS PO ; Start 11/13/17 at 21:00 Sertraline HCl (Zoloft) 75 mg DAILY PO Last administered on 11/13/17at 08:37; Start 11/13/17 at 09:00 Zolpidem Tartrate (Ambien) 5 mg PRN QHS PRN PO INSOMNIA; Start 11/12/17 at 23:30 Active Scripts Active Tramadol Hcl 50 Mg Tablet 50 Mg PO Q12H PRN Ondansetron Odt (Ondansetron) 4 Mg Tab.rapdis 4 Mg PO TID PRN Zofran Odt (Ondansetron) 4 Mg Tab.rapdis 1 Tab SL Q6HRS PRN Diazepam 5 Mg Tablet 5 Mg PO PRN Q6HRS PRN Reported Gabapentin 300 Mg Capsule 300 Mg PO TID Sumatriptan Succinate 100 Mg Tablet 100 Mg PO ONCE PRN Seroquel (Quetiapine Fumarate) 50 Mg Tablet 1 Tab PO QHS Seroquel (Quetiapine Fumarate) 25 Mg Tablet 1 Tab PO TID Zoloft (Sertraline Hcl) 25 Mg Tablet 75 Mg PO DAILY Chantix (Varenicline Tartrate) 1 Mg Tablet 1 Mg PO DAILY Ventolin Hfa Inhaler (Albuterol Sulfate) 18 Gm Hfa.aer.ad 2 Puff INH Q4HRS PRN Spiriva (Tiotropium Eddy) 18 Mcg Cap.w.dev 1 Cap IH DAILY Tizanidine Hcl 4 Mg Tablet 4 Mg PO PRN Q6HRS PRN Morphine Sulfate 30 Mg Tablet 30 Mg PO PRN Q6HRS PRN Pantoprazole Sodium 40 Mg Tablet.dr 40 Mg PO DAILY Allergies Allergies: Coded Allergies: aspirin (Verified Allergy, Severe, Anaphylaxis; TOLERATES IBUPROFEN, ) Iodinated Contrast- Oral and IV Dye (Verified Allergy, Intermediate, Hives , 02/26/17) prochlorperazine (Verified Allergy, Intermediate, 09/02/15) metoclopramide (Verified Allergy, Mild, restless leg, 11/12/17) venlafaxine (Verified Allergy, Mild, 11/12/17) lorazepam (Verified Adverse Reaction, Intermediate, 02/26/17) Corticosteroids (Glucocorticoids) (Verified Adverse Reaction, Mild, RESTLESS LEG, 09/02/15) fluticasone (Verified Adverse Reaction, Mild, 09/02/15) RESTLESS LEG salmeterol (Verified Adverse Reaction, Mild, 09/02/15) RESTLESS LEG ROS Review of System As per HPI Physical Exam Physical Exam General: NAD HEENT: neck supple Lungs- CTA, Non labored Heart: RRR, no thrills, no gallops, no murmurs Abdomen: Soft, ostomy, liquid stool Extremities: No edema Skin: No rashes Neuro: Normal speech, Sensation intact Psych/Mental Status: Mental status NL, Mood NL - No CVA/ cp TENDERNESS, nO GALLAGHER Vital Signs Vital Signs Date Time Temp Pulse Resp B/P (MAP) Pulse Ox O2 Delivery O2 Flow Rate FiO2 11/13/17 07:00 97.8 79 87/60 (69) 92 97.8 11/13/17 06:05 Room Air 11/13/17 03:00 18 Assessment & Plan PATRIA - Likely pre-renal /?diarrhea from ostomy Renal US normal , UA Normal - No sign micr hematuria or UTI Renal function improving with Hydration E-lytes and acid base stable Significant Hx of care home use of NSAID's Hypokalemia- Normal today Hyperphosphatemia/ Hypocalcemia - repeat labs in am 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 her previous labs available in our system No DM/HTN Syncope -Aggressive hydration in ER Managed by primary Discussed with Pt Labs Labs Laboratory Tests Test 11/12/17 18:40 11/12/17 19:40 11/13/17 07:39 White Blood Count 9.9 x10^3/uL (4.0-11.0) 7.5 x10^3/uL (4.0-11.0) Red Blood Count 3.96 x10^6/uL (3.50-5.40) 3.58 x10^6/uL (3.50-5.40) Hemoglobin 13.1 g/dL (12.0-15.5) 11.8 g/dL (12.0-15.5) Hematocrit 37.8 % (36.0-47.0) 34.3 % (36.0-47.0) Mean Corpuscular Volume 96 fL (79-100) 96 fL (79-100) Mean Corpuscular Hemoglobin 33 pg (25-35) 33 pg (25-35) Mean Corpuscular Hemoglobin Concent 35 g/dL (31-37) 35 g/dL (31-37) Red Cell Distribution Width 13.0 % (11.5-14.5) 12.8 % (11.5-14.5) Platelet Count 305 x10^3/uL (140-400) 259 x10^3/uL (140-400) Neutrophils (%) (Auto) 57 % (31-73) 56 % (31-73) Lymphocytes (%) (Auto) 30 % (24-48) 31 % (24-48) Monocytes (%) (Auto) 9 % (0-9) 9 % (0-9) Eosinophils (%) (Auto) 4 % (0-3) 3 % (0-3) Basophils (%) (Auto) 1 % (0-3) 1 % (0-3) Neutrophils # (Auto) 5.6 x10^3uL (1.8-7.7) 4.2 x10^3uL (1.8-7.7) Lymphocytes # (Auto) 2.9 x10^3/uL (1.0-4.8) 2.3 x10^3/uL (1.0-4.8) Monocytes # (Auto) 0.9 x10^3/uL (0.0-1.1) 0.6 x10^3/uL (0.0-1.1) Eosinophils # (Auto) 0.4 x10^3/uL (0.0-0.7) 0.2 x10^3/uL (0.0-0.7) Basophils # (Auto) 0.0 x10^3/uL (0.0-0.2) 0.0 x10^3/uL (0.0-0.2) Prothrombin Time 11.5 SEC (11.7-14.0) Prothromb Time International Ratio 0.9 (0.8-1.1) Sodium Level 132 mmol/L (136-145) 142 mmol/L (136-145) Potassium Level 2.9 mmol/L (3.5-5.1) 3.7 mmol/L (3.5-5.1) Chloride Level 96 mmol/L (98-107) 110 mmol/L (98-107) Carbon Dioxide Level 23 mmol/L (21-32) 23 mmol/L (21-32) Anion Gap 13 (6-14) 9 (6-14) Blood Urea Nitrogen 27 mg/dL (7-20) 20 mg/dL (7-20) Creatinine 3.4 mg/dL (0.6-1.0) 1.4 mg/dL (0.6-1.0) Estimated GFR (Cockcroft-Gault) 14.1 39.3 BUN/Creatinine Ratio 8 (6-20) Glucose Level 104 mg/dL (70-99) 101 mg/dL (70-99) Lactic Acid Level 2.1 mmol/L (0.4-2.0) 0.3 mmol/L (0.4-2.0) Calcium Level 9.1 mg/dL (8.5-10.1) 7.8 mg/dL (8.5-10.1) Phosphorus Level 7.1 mg/dL (2.6-4.7) Magnesium Level 2.1 mg/dL (1.8-2.4) Total Bilirubin 0.1 mg/dL (0.2-1.0) Aspartate Amino Transf (AST/SGOT) 11 U/L (15-37) Alanine Aminotransferase (ALT/SGPT) 15 U/L (14-59) Alkaline Phosphatase 103 U/L (46-116) Creatine Kinase 152 U/L (26-192) Creatine Kinase MB (Mass) 2.0 ng/mL (0.0-3.6) Creatine Kinase MB Relative Index 1.3 % (0-4) Troponin I Quantitative < 0.017 ng/mL (0.000-0.055) CW-Rkc-N-Type Natriuretic Peptide 52 pg/mL (0-124) Total Protein 6.7 g/dL (6.4-8.2) Albumin 3.5 g/dL (3.4-5.0) Albumin/Globulin Ratio 1.1 (1.0-1.7) Lipase 230 U/L (73-393) Thyroid Stimulating Hormone (TSH) 0.655 uIU/mL (0.358-3.74) Free Thyroxine 0.79 ng/dL (0.76-1.46) Urine Collection Type Unknown Urine Color Yellow Urine Clarity Clear Urine pH 5.5 Urine Specific [place] 1.015 Urine Protein Negative mg/dL (NEG-TRACE) Urine Glucose (UA) Negative mg/dL (NEG) Urine Ketones (Stick) Negative mg/dL (NEG) Urine Blood Negative (NEG) Urine Nitrite Negative (NEG) Urine Bilirubin Negative (NEG) Urine Urobilinogen Dipstick 0.2 mg/dL (0.2 mg/dL) Urine Leukocyte Esterase Trace (NEG) Urine RBC Occ /HPF (0-2) Urine WBC 1-4 /HPF (0-4) Urine Squamous Epithelial Cells Mod /LPF Urine Bacteria Few /HPF (0-FEW) Urine Hyaline Casts Moderate /HPF Urine Mucus Slight /LPF Laboratory Tests Test 11/12/17 18:40 11/12/17 19:40 11/13/17 07:39 White Blood Count 9.9 x10^3/uL (4.0-11.0) 7.5 x10^3/uL (4.0-11.0) Red Blood Count 3.96 x10^6/uL (3.50-5.40) 3.58 x10^6/uL (3.50-5.40) Hemoglobin 13.1 g/dL (12.0-15.5) 11.8 g/dL (12.0-15.5) Hematocrit 37.8 % (36.0-47.0) 34.3 % (36.0-47.0) Mean Corpuscular Volume 96 fL (79-100) 96 fL (79-100) Mean Corpuscular Hemoglobin 33 pg (25-35) 33 pg (25-35) Mean Corpuscular Hemoglobin Concent 35 g/dL (31-37) 35 g/dL (31-37) Red Cell Distribution Width 13.0 % (11.5-14.5) 12.8 % (11.5-14.5) Platelet Count 305 x10^3/uL (140-400) 259 x10^3/uL (140-400) Neutrophils (%) (Auto) 57 % (31-73) 56 % (31-73) Lymphocytes (%) (Auto) 30 % (24-48) 31 % (24-48) Monocytes (%) (Auto) 9 % (0-9) 9 % (0-9) Eosinophils (%) (Auto) 4 % (0-3) 3 % (0-3) Basophils (%) (Auto) 1 % (0-3) 1 % (0-3) Neutrophils # (Auto) 5.6 x10^3uL (1.8-7.7) 4.2 x10^3uL (1.8-7.7) Lymphocytes # (Auto) 2.9 x10^3/uL (1.0-4.8) 2.3 x10^3/uL (1.0-4.8) Monocytes # (Auto) 0.9 x10^3/uL (0.0-1.1) 0.6 x10^3/uL (0.0-1.1) Eosinophils # (Auto) 0.4 x10^3/uL (0.0-0.7) 0.2 x10^3/uL (0.0-0.7) Basophils # (Auto) 0.0 x10^3/uL (0.0-0.2) 0.0 x10^3/uL (0.0-0.2) Prothrombin Time 11.5 SEC (11.7-14.0) Prothromb Time International Ratio 0.9 (0.8-1.1) Sodium Level 132 mmol/L (136-145) 142 mmol/L (136-145) Potassium Level 2.9 mmol/L (3.5-5.1) 3.7 mmol/L (3.5-5.1) Chloride Level 96 mmol/L (98-107) 110 mmol/L (98-107) Carbon Dioxide Level 23 mmol/L (21-32) 23 mmol/L (21-32) Anion Gap 13 (6-14) 9 (6-14) Blood Urea Nitrogen 27 mg/dL (7-20) 20 mg/dL (7-20) Creatinine 3.4 mg/dL (0.6-1.0) 1.4 mg/dL (0.6-1.0) Estimated GFR (Cockcroft-Gault) 14.1 39.3 BUN/Creatinine Ratio 8 (6-20) Glucose Level 104 mg/dL (70-99) 101 mg/dL (70-99) Lactic Acid Level 2.1 mmol/L (0.4-2.0) 0.3 mmol/L (0.4-2.0) Calcium Level 9.1 mg/dL (8.5-10.1) 7.8 mg/dL (8.5-10.1) Phosphorus Level 7.1 mg/dL (2.6-4.7) Magnesium Level 2.1 mg/dL (1.8-2.4) Total Bilirubin 0.1 mg/dL (0.2-1.0) Aspartate Amino Transf (AST/SGOT) 11 U/L (15-37) Alanine Aminotransferase (ALT/SGPT) 15 U/L (14-59) Alkaline Phosphatase 103 U/L (46-116) Creatine Kinase 152 U/L (26-192) Creatine Kinase MB (Mass) 2.0 ng/mL (0.0-3.6) Creatine Kinase MB Relative Index 1.3 % (0-4) Troponin I Quantitative < 0.017 ng/mL (0.000-0.055) WM-Yuv-M-Type Natriuretic Peptide 52 pg/mL (0-124) Total Protein 6.7 g/dL (6.4-8.2) Albumin 3.5 g/dL (3.4-5.0) Albumin/Globulin Ratio 1.1 (1.0-1.7) Lipase 230 U/L (73-393) Thyroid Stimulating Hormone (TSH) 0.655 uIU/mL (0.358-3.74) Free Thyroxine 0.79 ng/dL (0.76-1.46) Urine Collection Type Unknown Urine Color Yellow Urine Clarity Clear Urine pH 5.5 Urine Specific [place] 1.015 Urine Protein Negative mg/dL (NEG-TRACE) Urine Glucose (UA) Negative mg/dL (NEG) Urine Ketones (Stick) Negative mg/dL (NEG) Urine Blood Negative (NEG) Urine Nitrite Negative (NEG) Urine Bilirubin Negative (NEG) Urine Urobilinogen Dipstick 0.2 mg/dL (0.2 mg/dL) Urine Leukocyte Esterase Trace (NEG) Urine RBC Occ /HPF (0-2) Urine WBC 1-4 /HPF (0-4) Urine Squamous Epithelial Cells Mod /LPF Urine Bacteria Few /HPF (0-FEW) Urine Hyaline Casts Moderate /HPF Urine Mucus Slight /LPF Review All relevant outside records, renal labs, imaging studies, telemetry/EKG's were reviewed. Images Images Renal US-- The right kidney measures 9.9 x 4.9 x 4.8 cm. The left kidney measures 11.2 x 4.0 x 4.3 cm. The visualized aorta, IVC appear within normal limits of dimension. No evidence of hydronephrosis. Bilateral ureteral jets identified. Urinary bladder is mildly distended. KAYLEEN EWING MD Nov 13, 2017 10:02
[2017-11-13] MEDS ORDERED: IV NORMAL SALINE 1000ML BAG 1,000 ML IV ONE ×2 (12:00)
--- NOTE | 2017-11-13 14:43 | PDOC ---
PROGRESS NOTES History of Present Illness History of Present Illness Assessment/Plan Assessment/Plan syncope, with myoclonus, ? witnessed, acute renal failure, hyperphos and hypokalemia check renal US, hypokalemia hematuria, she reports longstanding, ISC prn, check renal US, may need uro consult UA pending tobacco use disorder with probable hx of COPD, nebs, smoking cessation, patch and gum ordered diarrhea from ostomy, NOS' plan nephrology consult tele neurochecks neurology consult Vitals Vitals Vital Signs Date Time Temp Pulse Resp B/P (MAP) Pulse Ox O2 Delivery O2 Flow Rate FiO2 11/13/17 13:21 75 99/63 (75) 11/13/17 11:00 97.7 18 100 Room Air 97.7 Physical Exam General: Alert, Oriented X3, Cooperative, No acute distress, mild distress Heart: Regular rate Lungs: Clear, Wheezing Abdomen: Normal bowel sounds, Soft, No hepatosplenomegaly, Other (ostomy, liquid stool audible gas) Extremities: No clubbing, No edema Skin: No rashes, No significant lesion Labs LABS Laboratory Tests Test 11/12/17 18:40 11/12/17 19:40 11/13/17 07:39 White Blood Count 9.9 x10^3/uL (4.0-11.0) 7.5 x10^3/uL (4.0-11.0) Red Blood Count 3.96 x10^6/uL (3.50-5.40) 3.58 x10^6/uL (3.50-5.40) Hemoglobin 13.1 g/dL (12.0-15.5) 11.8 g/dL (12.0-15.5) Hematocrit 37.8 % (36.0-47.0) 34.3 % (36.0-47.0) Mean Corpuscular Volume 96 fL (79-100) 96 fL (79-100) Mean Corpuscular Hemoglobin 33 pg (25-35) 33 pg (25-35) Mean Corpuscular Hemoglobin Concent 35 g/dL (31-37) 35 g/dL (31-37) Red Cell Distribution Width 13.0 % (11.5-14.5) 12.8 % (11.5-14.5) Platelet Count 305 x10^3/uL (140-400) 259 x10^3/uL (140-400) Neutrophils (%) (Auto) 57 % (31-73) 56 % (31-73) Lymphocytes (%) (Auto) 30 % (24-48) 31 % (24-48) Monocytes (%) (Auto) 9 % (0-9) 9 % (0-9) Eosinophils (%) (Auto) 4 % (0-3) 3 % (0-3) Basophils (%) (Auto) 1 % (0-3) 1 % (0-3) Neutrophils # (Auto) 5.6 x10^3uL (1.8-7.7) 4.2 x10^3uL (1.8-7.7) Lymphocytes # (Auto) 2.9 x10^3/uL (1.0-4.8) 2.3 x10^3/uL (1.0-4.8) Monocytes # (Auto) 0.9 x10^3/uL (0.0-1.1) 0.6 x10^3/uL (0.0-1.1) Eosinophils # (Auto) 0.4 x10^3/uL (0.0-0.7) 0.2 x10^3/uL (0.0-0.7) Basophils # (Auto) 0.0 x10^3/uL (0.0-0.2) 0.0 x10^3/uL (0.0-0.2) Prothrombin Time 11.5 SEC (11.7-14.0) Prothromb Time International Ratio 0.9 (0.8-1.1) Sodium Level 132 mmol/L (136-145) 142 mmol/L (136-145) Potassium Level 2.9 mmol/L (3.5-5.1) 3.7 mmol/L (3.5-5.1) Chloride Level 96 mmol/L (98-107) 110 mmol/L (98-107) Carbon Dioxide Level 23 mmol/L (21-32) 23 mmol/L (21-32) Anion Gap 13 (6-14) 9 (6-14) Blood Urea Nitrogen 27 mg/dL (7-20) 20 mg/dL (7-20) Creatinine 3.4 mg/dL (0.6-1.0) 1.4 mg/dL (0.6-1.0) Estimated GFR (Cockcroft-Gault) 14.1 39.3 BUN/Creatinine Ratio 8 (6-20) Glucose Level 104 mg/dL (70-99) 101 mg/dL (70-99) Lactic Acid Level 2.1 mmol/L (0.4-2.0) 0.3 mmol/L (0.4-2.0) Calcium Level 9.1 mg/dL (8.5-10.1) 7.8 mg/dL (8.5-10.1) Phosphorus Level 7.1 mg/dL (2.6-4.7) Magnesium Level 2.1 mg/dL (1.8-2.4) Total Bilirubin 0.1 mg/dL (0.2-1.0) Aspartate Amino Transf (AST/SGOT) 11 U/L (15-37) Alanine Aminotransferase (ALT/SGPT) 15 U/L (14-59) Alkaline Phosphatase 103 U/L (46-116) Creatine Kinase 152 U/L (26-192) Creatine Kinase MB (Mass) 2.0 ng/mL (0.0-3.6) Creatine Kinase MB Relative Index 1.3 % (0-4) Troponin I Quantitative < 0.017 ng/mL (0.000-0.055) [id number]-Type Natriuretic Peptide 52 pg/mL (0-124) Total Protein 6.7 g/dL (6.4-8.2) Albumin 3.5 g/dL (3.4-5.0) Albumin/Globulin Ratio 1.1 (1.0-1.7) Lipase 230 U/L (73-393) Thyroid Stimulating Hormone (TSH) 0.655 uIU/mL (0.358-3.74) Free Thyroxine 0.79 ng/dL (0.76-1.46) Urine Collection Type Unknown Urine Color Yellow Urine Clarity Clear Urine pH 5.5 Urine Specific Power 1.015 Urine Protein Negative mg/dL (NEG-TRACE) Urine Glucose (UA) Negative mg/dL (NEG) Urine Ketones (Stick) Negative mg/dL (NEG) Urine Blood Negative (NEG) Urine Nitrite Negative (NEG) Urine Bilirubin Negative (NEG) Urine Urobilinogen Dipstick 0.2 mg/dL (0.2 mg/dL) Urine Leukocyte Esterase Trace (NEG) Urine RBC Occ /HPF (0-2) Urine WBC 1-4 /HPF (0-4) Urine Squamous Epithelial Cells Mod /LPF Urine Bacteria Few /HPF (0-FEW) Urine Hyaline Casts Moderate /HPF Urine Mucus Slight /LPF Assessment and Plan Assessmemt and Plan Problems Medical Problems: (1) Acute renal failure Status: Acute (2) Hypertension Status: Acute (3) Hypokalemia Status: Acute Comment Review of Relevant I have reviewed the following items aylin (where applicable) has been applied. Labs Laboratory Tests Test 11/12/17 18:40 11/12/17 19:40 11/13/17 07:39 White Blood Count 9.9 x10^3/uL (4.0-11.0) 7.5 x10^3/uL (4.0-11.0) Red Blood Count 3.96 x10^6/uL (3.50-5.40) 3.58 x10^6/uL (3.50-5.40) Hemoglobin 13.1 g/dL (12.0-15.5) 11.8 g/dL (12.0-15.5) Hematocrit 37.8 % (36.0-47.0) 34.3 % (36.0-47.0) Mean Corpuscular Volume 96 fL (79-100) 96 fL (79-100) Mean Corpuscular Hemoglobin 33 pg (25-35) 33 pg (25-35) Mean Corpuscular Hemoglobin Concent 35 g/dL (31-37) 35 g/dL (31-37) Red Cell Distribution Width 13.0 % (11.5-14.5) 12.8 % (11.5-14.5) Platelet Count 305 x10^3/uL (140-400) 259 x10^3/uL (140-400) Neutrophils (%) (Auto) 57 % (31-73) 56 % (31-73) Lymphocytes (%) (Auto) 30 % (24-48) 31 % (24-48) Monocytes (%) (Auto) 9 % (0-9) 9 % (0-9) Eosinophils (%) (Auto) 4 % (0-3) 3 % (0-3) Basophils (%) (Auto) 1 % (0-3) 1 % (0-3) Neutrophils # (Auto) 5.6 x10^3uL (1.8-7.7) 4.2 x10^3uL (1.8-7.7) Lymphocytes # (Auto) 2.9 x10^3/uL (1.0-4.8) 2.3 x10^3/uL (1.0-4.8) Monocytes # (Auto) 0.9 x10^3/uL (0.0-1.1) 0.6 x10^3/uL (0.0-1.1) Eosinophils # (Auto) 0.4 x10^3/uL (0.0-0.7) 0.2 x10^3/uL (0.0-0.7) Basophils # (Auto) 0.0 x10^3/uL (0.0-0.2) 0.0 x10^3/uL (0.0-0.2) Prothrombin Time 11.5 SEC (11.7-14.0) Prothromb Time International Ratio 0.9 (0.8-1.1) Sodium Level 132 mmol/L (136-145) 142 mmol/L (136-145) Potassium Level 2.9 mmol/L (3.5-5.1) 3.7 mmol/L (3.5-5.1) Chloride Level 96 mmol/L (98-107) 110 mmol/L (98-107) Carbon Dioxide Level 23 mmol/L (21-32) 23 mmol/L (21-32) Anion Gap 13 (6-14) 9 (6-14) Blood Urea Nitrogen 27 mg/dL (7-20) 20 mg/dL (7-20) Creatinine 3.4 mg/dL (0.6-1.0) 1.4 mg/dL (0.6-1.0) Estimated GFR (Cockcroft-Gault) 14.1 39.3 BUN/Creatinine Ratio 8 (6-20) Glucose Level 104 mg/dL (70-99) 101 mg/dL (70-99) Lactic Acid Level 2.1 mmol/L (0.4-2.0) 0.3 mmol/L (0.4-2.0) Calcium Level 9.1 mg/dL (8.5-10.1) 7.8 mg/dL (8.5-10.1) Phosphorus Level 7.1 mg/dL (2.6-4.7) Magnesium Level 2.1 mg/dL (1.8-2.4) Total Bilirubin 0.1 mg/dL (0.2-1.0) Aspartate Amino Transf (AST/SGOT) 11 U/L (15-37) Alanine Aminotransferase (ALT/SGPT) 15 U/L (14-59) Alkaline Phosphatase 103 U/L (46-116) Creatine Kinase 152 U/L (26-192) Creatine Kinase MB (Mass) 2.0 ng/mL (0.0-3.6) Creatine Kinase MB Relative Index 1.3 % (0-4) Troponin I Quantitative < 0.017 ng/mL (0.000-0.055) [id number]-Type Natriuretic Peptide 52 pg/mL (0-124) Total Protein 6.7 g/dL (6.4-8.2) Albumin 3.5 g/dL (3.4-5.0) Albumin/Globulin Ratio 1.1 (1.0-1.7) Lipase 230 U/L (73-393) Thyroid Stimulating Hormone (TSH) 0.655 uIU/mL (0.358-3.74) Free Thyroxine 0.79 ng/dL (0.76-1.46) Urine Collection Type Unknown Urine Color Yellow Urine Clarity Clear Urine pH 5.5 Urine Specific Power 1.015 Urine Protein Negative mg/dL (NEG-TRACE) Urine Glucose (UA) Negative mg/dL (NEG) Urine Ketones (Stick) Negative mg/dL (NEG) Urine Blood Negative (NEG) Urine Nitrite Negative (NEG) Urine Bilirubin Negative (NEG) Urine Urobilinogen Dipstick 0.2 mg/dL (0.2 mg/dL) Urine Leukocyte Esterase Trace (NEG) Urine RBC Occ /HPF (0-2) Urine WBC 1-4 /HPF (0-4) Urine Squamous Epithelial Cells Mod /LPF Urine Bacteria Few /HPF (0-FEW) Urine Hyaline Casts Moderate /HPF Urine Mucus Slight /LPF Laboratory Tests Test 11/12/17 18:40 11/12/17 19:40 11/13/17 07:39 White Blood Count 9.9 x10^3/uL (4.0-11.0) 7.5 x10^3/uL (4.0-11.0) Red Blood Count 3.96 x10^6/uL (3.50-5.40) 3.58 x10^6/uL (3.50-5.40) Hemoglobin 13.1 g/dL (12.0-15.5) 11.8 g/dL (12.0-15.5) Hematocrit 37.8 % (36.0-47.0) 34.3 % (36.0-47.0) Mean Corpuscular Volume 96 fL (79-100) 96 fL (79-100) Mean Corpuscular Hemoglobin 33 pg (25-35) 33 pg (25-35) Mean Corpuscular Hemoglobin Concent 35 g/dL (31-37) 35 g/dL (31-37) Red Cell Distribution Width 13.0 % (11.5-14.5) 12.8 % (11.5-14.5) Platelet Count 305 x10^3/uL (140-400) 259 x10^3/uL (140-400) Neutrophils (%) (Auto) 57 % (31-73) 56 % (31-73) Lymphocytes (%) (Auto) 30 % (24-48) 31 % (24-48) Monocytes (%) (Auto) 9 % (0-9) 9 % (0-9) Eosinophils (%) (Auto) 4 % (0-3) 3 % (0-3) Basophils (%) (Auto) 1 % (0-3) 1 % (0-3) Neutrophils # (Auto) 5.6 x10^3uL (1.8-7.7) 4.2 x10^3uL (1.8-7.7) Lymphocytes # (Auto) 2.9 x10^3/uL (1.0-4.8) 2.3 x10^3/uL (1.0-4.8) Monocytes # (Auto) 0.9 x10^3/uL (0.0-1.1) 0.6 x10^3/uL (0.0-1.1) Eosinophils # (Auto) 0.4 x10^3/uL (0.0-0.7) 0.2 x10^3/uL (0.0-0.7) Basophils # (Auto) 0.0 x10^3/uL (0.0-0.2) 0.0 x10^3/uL (0.0-0.2) Prothrombin Time 11.5 SEC (11.7-14.0) Prothromb Time International Ratio 0.9 (0.8-1.1) Sodium Level 132 mmol/L (136-145) 142 mmol/L (136-145) Potassium Level 2.9 mmol/L (3.5-5.1) 3.7 mmol/L (3.5-5.1) Chloride Level 96 mmol/L (98-107) 110 mmol/L (98-107) Carbon Dioxide Level 23 mmol/L (21-32) 23 mmol/L (21-32) Anion Gap 13 (6-14) 9 (6-14) Blood Urea Nitrogen 27 mg/dL (7-20) 20 mg/dL (7-20) Creatinine 3.4 mg/dL (0.6-1.0) 1.4 mg/dL (0.6-1.0) Estimated GFR (Cockcroft-Gault) 14.1 39.3 BUN/Creatinine Ratio 8 (6-20) Glucose Level 104 mg/dL (70-99) 101 mg/dL (70-99) Lactic Acid Level 2.1 mmol/L (0.4-2.0) 0.3 mmol/L (0.4-2.0) Calcium Level 9.1 mg/dL (8.5-10.1) 7.8 mg/dL (8.5-10.1) Phosphorus Level 7.1 mg/dL (2.6-4.7) Magnesium Level 2.1 mg/dL (1.8-2.4) Total Bilirubin 0.1 mg/dL (0.2-1.0) Aspartate Amino Transf (AST/SGOT) 11 U/L (15-37) Alanine Aminotransferase (ALT/SGPT) 15 U/L (14-59) Alkaline Phosphatase 103 U/L (46-116) Creatine Kinase 152 U/L (26-192) Creatine Kinase MB (Mass) 2.0 ng/mL (0.0-3.6) Creatine Kinase MB Relative Index 1.3 % (0-4) Troponin I Quantitative < 0.017 ng/mL (0.000-0.055) [id number]-[id number]-Type Natriuretic Peptide 52 pg/mL (0-124) Total Protein 6.7 g/dL (6.4-8.2) Albumin 3.5 g/dL (3.4-5.0) Albumin/Globulin Ratio 1.1 (1.0-1.7) Lipase 230 U/L (73-393) Thyroid Stimulating Hormone (TSH) 0.655 uIU/mL (0.358-3.74) Free Thyroxine 0.79 ng/dL (0.76-1.46) Urine Collection Type Unknown Urine Color Yellow Urine Clarity Clear Urine pH 5.5 Urine Specific Power 1.015 Urine Protein Negative mg/dL (NEG-TRACE) Urine Glucose (UA) Negative mg/dL (NEG) Urine Ketones (Stick) Negative mg/dL (NEG) Urine Blood Negative (NEG) Urine Nitrite Negative (NEG) Urine Bilirubin Negative (NEG) Urine Urobilinogen Dipstick 0.2 mg/dL (0.2 mg/dL) Urine Leukocyte Esterase Trace (NEG) Urine RBC Occ /HPF (0-2) Urine WBC 1-4 /HPF (0-4) Urine Squamous Epithelial Cells Mod /LPF Urine Bacteria Few /HPF (0-FEW) Urine Hyaline Casts Moderate /HPF Urine Mucus Slight /LPF Medications Current Medications Sodium Chloride 1,000 ml @ 1,000 mls/hr 1X ONCE IV Last administered on at 20:12; Start 11/12/17 at 18:30; Stop 11/12/17 at 19:29; Status DC Sodium Chloride 1,000 ml @ 1,000 mls/hr Q1H IV Last administered on 11/12/17at 19:05; Start 11/12/17 at 18:27; Stop 11/12/17 at 19:26; Status DC Dexamethasone Sodium Phosphate (Decadron) 10 mg 1X ONCE IV ; Start 11/12/17 at 18:30; Stop 11/12/17 at 18:31; Status DC Potassium Chloride (Klor-Con) 40 meq 1X ONCE PO Last administered on 11/12/17at 20:12; Start 11/12/17 at 19:30; Stop 11/12/17 at 19:31; Status DC Potassium Chloride/Sodium Chloride 1,000 ml @ 250 mls/hr 1X ONCE IV Last administered on 11/12/17at 20:11; Start 11/12/17 at 19:30; Stop 11/12/17 at 23:29; Status DC Ringer's Solution 1,000 ml @ 150 mls/hr 1X ONCE IV ; Start 11/12/17 at 20:00; Stop 11/13/17 at 02:39; Status DC Diazepam (Valium) 5 mg PRN Q6HRS PRN PO ANXIETY / AGITATION Last administered on 11/12/17at 22:44; Start 11/12/17 at 20:15 Metoclopramide HCl (Reglan) 5 mg QIDACHS PO ; Start 11/12/17 at 21:00; Stop at 23:24; Status DC Ondansetron HCl (Zofran Odt) 4 mg PRN TID PRN PO NAUSEA/VOMITING; Start at 20:15 Pantoprazole Sodium (Protonix) 40 mg DAILYAC PO Last administered on 11/13/17at 08:37; Start 11/13/17 at 07:30 Tramadol HCl (Ultram) 50 mg PRN Q6HRS PRN PO pain Last administered on at 05:01; Start 11/12/17 at 20:15 Albuterol Sulfate (Ventolin Neb Soln) 2.5 mg PRN Q4HRS PRN NEB SHORTNESS OF BREATH; Start 11/12/17 at 20:30 Mirtazapine (Remeron) 30 mg QHS PO ; Start 11/12/17 at 21:00; Stop 11/12/17 at 23: 24; Status DC Non-Formulary Medication (Tiotropium [place] (Spiriva)) 1 cap DAILY IH ; Start 11/13/17 at 09:00; Status UNV Tizanidine HCl (Zanaflex) 4 mg PRN Q6HRS PRN PO MUSCLE SPASMS Last administered on 11/13/17at 13:30; Start 11/12/17 at 20:30 Triamterene/HCTZ (Maxzide 37.5/ 25mg) 1 tab DAILY PO ; Start 11/13/17 at 09:00; Stop 11/13/17 at 09:00; Status DC Venlafaxine HCl (Effexor) 50 mg TID PO ; Start 11/12/17 at 21:00; Stop 11/12/17 at 23:24; Status DC Sertraline HCl (Zoloft) 50 mg DAILY PO ; Start 11/13/17 at 09:00; Stop 11/13/17 at 09:00; Status DC Nicotine (Nicoderm Cq 21mg) 1 patch PRN DAILY PRN TD SMOKING CESSATION 1ST CHOICE; Start 11/12/17 at 20:30 Nicotine Polacrilex (Nicorette Gum) 1 each PRN Q1HR PRN BC SMOKING CESSATION 2ND CHOICE; Start 11/12/17 at 20:30 Sodium Chloride 1,000 ml @ 100 mls/hr 1X ONCE IV Last administered on at 22:44; Start 11/12/17 at 20:30; Stop 11/13/17 at 06:29; Status DC Albuterol/ Ipratropium (Duoneb) 3 ml RTQID NEB ; Start 11/13/17 at 08:00 Sumatriptan Succinate (Imitrex) 100 mg PRN DAILY PRN PO MIGRAINE HEADACHE; Start 11/12/17 at 23:15 Gabapentin (Neurontin) 100 mg TID PO Last administered on 11/13/17at 13:30; Start 11/13/17 at 09:00 Quetiapine Fumarate (SEROquel) 25 mg TID PO Last administered on 11/13/17at 08:37 ; Start 11/13/17 at 09:00 Quetiapine Fumarate (SEROquel) 50 mg QHS PO ; Start 11/13/17 at 21:00 Sertraline HCl (Zoloft) 75 mg DAILY PO Last administered on 11/13/17at 08:37; Start 11/13/17 at 09:00 Zolpidem Tartrate (Ambien) 5 mg PRN QHS PRN PO INSOMNIA; Start 11/12/17 at 23:30 Sodium Chloride 1,000 ml @ 150 mls/hr 1X ONCE IV ; Start 11/13/17 at 12:00; Stop 11/13/17 at 18:39 Sodium Chloride 1,000 ml @ 0 mls/hr 1X ONCE IV Last administered on 11/13/17at 13:30; Start 11/13/17 at 12:00; Stop 11/13/17 at 12:01; Status DC Active Scripts Active Tramadol Hcl 50 Mg Tablet 50 Mg PO Q12H PRN Ondansetron Odt (Ondansetron) 4 Mg Tab.rapdis 4 Mg PO TID PRN Zofran Odt (Ondansetron) 4 Mg Tab.rapdis 1 Tab SL Q6HRS PRN Diazepam 5 Mg Tablet 5 Mg PO PRN Q6HRS PRN Reported Gabapentin 300 Mg Capsule 300 Mg PO TID Sumatriptan Succinate 100 Mg Tablet 100 Mg PO ONCE PRN Seroquel (Quetiapine Fumarate) 50 Mg Tablet 1 Tab PO QHS Seroquel (Quetiapine Fumarate) 25 Mg Tablet 1 Tab PO TID Zoloft (Sertraline Hcl) 25 Mg Tablet 75 Mg PO DAILY Chantix (Varenicline Tartrate) 1 Mg Tablet 1 Mg PO DAILY Ventolin Hfa Inhaler (Albuterol Sulfate) 18 Gm Hfa.aer.ad 2 Puff INH Q4HRS PRN Spiriva (Tiotropium [place]) 18 Mcg Cap.w.dev 1 Cap IH DAILY Tizanidine Hcl 4 Mg Tablet 4 Mg PO PRN Q6HRS PRN Morphine Sulfate 30 Mg Tablet 30 Mg PO PRN Q6HRS PRN Pantoprazole Sodium 40 Mg Tablet.dr 40 Mg PO DAILY Vitals/I & O Vital Sign - Last 24 Hours 11/12/17 11/12/17 11/12/17 11/12/17 17:59 18:00 18:25 18:55 Temp 98.3 98.3 Pulse 83 84 82 82 Resp 20 B/P (MAP) 83/56 (65) Pulse Ox 95 95 94 90 O2 Delivery Room Air 11/12/17 11/12/17 11/12/17 11/12/17 19:25 20:00 22:36 22:58 Pulse 78 76 Pulse Ox 94 90 94 O2 Delivery Room Air Room Air 11/12/17 11/13/17 11/13/17 11/13/17 23:00 03:00 04:34 05:01 Temp 97.6 98.6 97.6 98.6 Pulse 86 82 82 Resp 17 18 B/P (MAP) 95/54 (68) 90/58 (69) 100/58 (72) Pulse Ox 95 92 92 O2 Delivery Room Air Room Air Room Air 11/13/17 11/13/17 11/13/17/6/18 06:05 07:00 09:15 09:20 Temp 97.8 97.8 Pulse 79 74 82 B/P (MAP) 87/60 (69) 90/58 (69) 87/61 (70) Pulse Ox 92 92 O2 Delivery Room Air Room Air 11/13/17 11/13/17 11/13/17 09:25 11:00 13:21 Temp 97.7 97.7 Pulse 87 76 75 Resp 18 B/P (MAP) 94/54 (67) 93/56 (68) 99/63 (75) Pulse Ox 100 O2 Delivery Room Air Intake and Output 11/12/17 11/12/17 11/13/17 15:00 23:00 07:00 Intake Total 150 ml Balance 150 ml PRASHANT MANUEL MD Nov 13, 2017 14:43
--- NOTE | 2017-11-13 15:54 | PDOC2 ---
NEUROLOGY CONSULT Date of Admission Date of Admission DATE: 11/13/17 TIME: 15:48 Reason for Consult Reason for Consult: Syncope, headache Referring Physician Referring Physician: Dr. Walter Wood Source Source: Chart review, Patient History of Present Illness History of Present Illness The patient is a 51-year-old right-handed female who has had several episodes of headache, eyes rolling back in her head, shaking on both sides, but on only one occasion did she lose consciousness. She's never had tongue biting or incontinence. She does describe anxiety and depression. There is no history of stroke or head injury. She has not figured out any other inciting or mitigating features. Past Medical History Cardiovascular: CHF, HTN Pulmonary: Asthma, Bronchitis, COPD CENTRAL NERVOUS SYSTEM: Other (glaucoma, restless leg syndrome) GI: Inflam bowel disease (bones disease, has had colostomy, bowel resection), Other (pancreatitis) Hepatobiliary: Cholelithiasis Psych: Anxiety, Depression, Other (ADHD) Renal/: UTI Past Surgical History Past Surgical History: Appendectomy, Cholecystectomy, Hysterectomy, Colon Resection (colostomy) Family History Family History: Cancer, CAD, CVA Social History Social History Disabled, one half pack per day of tobacco, no alcohol, single Current Medications Current Medications Current Medications Sodium Chloride 1,000 ml @ 1,000 mls/hr 1X ONCE IV Last administered on at 20:12; Start 11/12/17 at 18:30; Stop 11/12/17 at 19:29; Status DC Sodium Chloride 1,000 ml @ 1,000 mls/hr Q1H IV Last administered on 11/12/17at 19:05; Start 11/12/17 at 18:27; Stop 11/12/17 at 19:26; Status DC Dexamethasone Sodium Phosphate (Decadron) 10 mg 1X ONCE IV ; Start 11/12/17 at 18:30; Stop 11/12/17 at 18:31; Status DC Potassium Chloride (Klor-Con) 40 meq 1X ONCE PO Last administered on 11/12/17at 20:12; Start 11/12/17 at 19:30; Stop 11/12/17 at 19:31; Status DC Potassium Chloride/Sodium Chloride 1,000 ml @ 250 mls/hr 1X ONCE IV Last administered on 11/12/17at 20:11; Start 11/12/17 at 19:30; Stop 11/12/17 at 23:29; Status DC Ringer's Solution 1,000 ml @ 150 mls/hr 1X ONCE IV ; Start 11/12/17 at 20:00; Stop 11/13/17 at 02:39; Status DC Diazepam (Valium) 5 mg PRN Q6HRS PRN PO ANXIETY / AGITATION Last administered on 11/12/17at 22:44; Start 11/12/17 at 20:15 Metoclopramide HCl (Reglan) 5 mg QIDACHS PO ; Start 11/12/17 at 21:00; Stop at 23:24; Status DC Ondansetron HCl (Zofran Odt) 4 mg PRN TID PRN PO NAUSEA/VOMITING; Start at 20:15 Pantoprazole Sodium (Protonix) 40 mg DAILYAC PO Last administered on 11/13/17at 08:37; Start 11/13/17 at 07:30 Tramadol HCl (Ultram) 50 mg PRN Q6HRS PRN PO pain Last administered on at 05:01; Start 11/12/17 at 20:15 Albuterol Sulfate (Ventolin Neb Soln) 2.5 mg PRN Q4HRS PRN NEB SHORTNESS OF BREATH; Start 11/12/17 at 20:30 Mirtazapine (Remeron) 30 mg QHS PO ; Start 11/12/17 at 21:00; Stop 11/12/17 at 23: 24; Status DC Non-Formulary Medication (Tiotropium [place] (Spiriva)) 1 cap DAILY IH ; Start 11/13/17 at 09:00; Status UNV Tizanidine HCl (Zanaflex) 4 mg PRN Q6HRS PRN PO MUSCLE SPASMS Last administered on 11/13/17at 13:30; Start 11/12/17 at 20:30 Triamterene/HCTZ (Maxzide 37.5/ 25mg) 1 tab DAILY PO ; Start 11/13/17 at 09:00; Stop 11/13/17 at 09:00; Status DC Venlafaxine HCl (Effexor) 50 mg TID PO ; Start 11/12/17 at 21:00; Stop 11/12/17 at 23:24; Status DC Sertraline HCl (Zoloft) 50 mg DAILY PO ; Start 11/13/17 at 09:00; Stop 11/13/17 at 09:00; Status DC Nicotine (Nicoderm Cq 21mg) 1 patch PRN DAILY PRN TD SMOKING CESSATION 1ST CHOICE; Start 11/12/17 at 20:30 Nicotine Polacrilex (Nicorette Gum) 1 each PRN Q1HR PRN BC SMOKING CESSATION 2ND CHOICE; Start 11/12/17 at 20:30 Sodium Chloride 1,000 ml @ 100 mls/hr 1X ONCE IV Last administered on at 22:44; Start 11/12/17 at 20:30; Stop 11/13/17 at 06:29; Status DC Albuterol/ Ipratropium (Duoneb) 3 ml RTQID NEB ; Start 11/13/17 at 08:00 Sumatriptan Succinate (Imitrex) 100 mg PRN DAILY PRN PO MIGRAINE HEADACHE; Start 11/12/17 at 23:15 Gabapentin (Neurontin) 100 mg TID PO Last administered on 11/13/17at 13:30; Start 11/13/17 at 09:00 Quetiapine Fumarate (SEROquel) 25 mg TID PO Last administered on 11/13/17at 14:53 ; Start 11/13/17 at 09:00 Quetiapine Fumarate (SEROquel) 50 mg QHS PO ; Start 11/13/17 at 21:00 Sertraline HCl (Zoloft) 75 mg DAILY PO Last administered on 11/13/17at 08:37; Start 11/13/17 at 09:00 Zolpidem Tartrate (Ambien) 5 mg PRN QHS PRN PO INSOMNIA; Start 11/12/17 at 23:30 Sodium Chloride 1,000 ml @ 150 mls/hr 1X ONCE IV Last administered on at 14:54; Start 11/13/17 at 12:00; Stop 11/13/17 at 18:39 Sodium Chloride 1,000 ml @ 0 mls/hr 1X ONCE IV Last administered on 11/13/17at 13:30; Start 11/13/17 at 12:00; Stop 11/13/17 at 12:01; Status DC Active Scripts Active Tramadol Hcl 50 Mg Tablet 50 Mg PO Q12H PRN Ondansetron Odt (Ondansetron) 4 Mg Tab.rapdis 4 Mg PO TID PRN Zofran Odt (Ondansetron) 4 Mg Tab.rapdis 1 Tab SL Q6HRS PRN Diazepam 5 Mg Tablet 5 Mg PO PRN Q6HRS PRN Reported Gabapentin 300 Mg Capsule 300 Mg PO TID Sumatriptan Succinate 100 Mg Tablet 100 Mg PO ONCE PRN Seroquel (Quetiapine Fumarate) 50 Mg Tablet 1 Tab PO QHS Seroquel (Quetiapine Fumarate) 25 Mg Tablet 1 Tab PO TID Zoloft (Sertraline Hcl) 25 Mg Tablet 75 Mg PO DAILY Chantix (Varenicline Tartrate) 1 Mg Tablet 1 Mg PO DAILY Ventolin Hfa Inhaler (Albuterol Sulfate) 18 Gm Hfa.aer.ad 2 Puff INH Q4HRS PRN Spiriva (Tiotropium [place]) 18 Mcg Cap.w.dev 1 Cap IH DAILY Tizanidine Hcl 4 Mg Tablet 4 Mg PO PRN Q6HRS PRN Morphine Sulfate 30 Mg Tablet 30 Mg PO PRN Q6HRS PRN Pantoprazole Sodium 40 Mg Tablet.dr 40 Mg PO DAILY Allergies Allergies: Coded Allergies: aspirin (Verified Allergy, Severe, Anaphylaxis; TOLERATES IBUPROFEN, ) Iodinated Contrast- Oral and IV Dye (Verified Allergy, Intermediate, Hives , 02/26/17) prochlorperazine (Verified Allergy, Intermediate, 09/02/15) metoclopramide (Verified Allergy, Mild, restless leg, 11/12/17) venlafaxine (Verified Allergy, Mild, 11/12/17) lorazepam (Verified Adverse Reaction, Intermediate, 02/26/17) Corticosteroids (Glucocorticoids) (Verified Adverse Reaction, Mild, RESTLESS LEG, 09/02/15) fluticasone (Verified Adverse Reaction, Mild, 09/02/15) RESTLESS LEG salmeterol (Verified Adverse Reaction, Mild, 09/02/15) RESTLESS LEG ROS Review of System Patient denies fevers, chills, weight loss, dyspnea, angina, abdominal pain, change in bowels, or dysuria. 14-point review of systems is negative. Physical Exam Physical Examination General: Well-developed, well-nourished, white female, in no acute distress HEENT: Normocephalic andatraumatic. Tympanic membranes clear.Temporal arteries pulsatile and nontender.Fundoscopic exam unremarkable Neck: Supple without bruit, no meningismus Musculoskeletal: Stability:see neurologic. Gait exam:see neurologic. Tone:see neurologic. Strength:see neurologic. Neurological: Mental Status:intact, orientation, memory, attention span/concentration, language, fund of knowledge normal. Cranial Nerves:Pupils equal and reactive to light, extraocular movements areintact, visual brady are full to confrontation. Facial sensation is normal. There is no facial asymmetry. Vestibulo-ocular reflex is intact. Palate elvates and tongue protrudes in midline. All other cranial related problems are negative except as mentioned before.Reflexes:2+ and symmetric with flexor plantar responses. Motor:5/5 strength with normal tone and bulk. Coordination:Finger-nose finger and heel-to -emery testing are normal. Rapid alternating movements and fine finger movements are intact. Gait:Normal, including tandem. Sensory:Normal pinprick, vibration , light touch, proprioception. Vitals VITALS Vital Signs Date Time Temp Pulse Resp B/P (MAP) Pulse Ox O2 Delivery O2 Flow Rate FiO2 11/13/17 15:00 98.5 75 22 92/63 (73) 97 98.5 11/13/17 11:00 Room Air Labs Labs Laboratory Tests Test 11/12/17 18:40 11/12/17 19:40 11/13/17 07:39 White Blood Count 9.9 x10^3/uL (4.0-11.0) 7.5 x10^3/uL (4.0-11.0) Red Blood Count 3.96 x10^6/uL (3.50-5.40) 3.58 x10^6/uL (3.50-5.40) Hemoglobin 13.1 g/dL (12.0-15.5) 11.8 g/dL (12.0-15.5) Hematocrit 37.8 % (36.0-47.0) 34.3 % (36.0-47.0) Mean Corpuscular Volume 96 fL (79-100) 96 fL (79-100) Mean Corpuscular Hemoglobin 33 pg (25-35) 33 pg (25-35) Mean Corpuscular Hemoglobin Concent 35 g/dL (31-37) 35 g/dL (31-37) Red Cell Distribution Width 13.0 % (11.5-14.5) 12.8 % (11.5-14.5) Platelet Count 305 x10^3/uL (140-400) 259 x10^3/uL (140-400) Neutrophils (%) (Auto) 57 % (31-73) 56 % (31-73) Lymphocytes (%) (Auto) 30 % (24-48) 31 % (24-48) Monocytes (%) (Auto) 9 % (0-9) 9 % (0-9) Eosinophils (%) (Auto) 4 % (0-3) 3 % (0-3) Basophils (%) (Auto) 1 % (0-3) 1 % (0-3) Neutrophils # (Auto) 5.6 x10^3uL (1.8-7.7) 4.2 x10^3uL (1.8-7.7) Lymphocytes # (Auto) 2.9 x10^3/uL (1.0-4.8) 2.3 x10^3/uL (1.0-4.8) Monocytes # (Auto) 0.9 x10^3/uL (0.0-1.1) 0.6 x10^3/uL (0.0-1.1) Eosinophils # (Auto) 0.4 x10^3/uL (0.0-0.7) 0.2 x10^3/uL (0.0-0.7) Basophils # (Auto) 0.0 x10^3/uL (0.0-0.2) 0.0 x10^3/uL (0.0-0.2) Prothrombin Time 11.5 SEC (11.7-14.0) Prothromb Time International Ratio 0.9 (0.8-1.1) Sodium Level 132 mmol/L (136-145) 142 mmol/L (136-145) Potassium Level 2.9 mmol/L (3.5-5.1) 3.7 mmol/L (3.5-5.1) Chloride Level 96 mmol/L (98-107) 110 mmol/L (98-107) Carbon Dioxide Level 23 mmol/L (21-32) 23 mmol/L (21-32) Anion Gap 13 (6-14) 9 (6-14) Blood Urea Nitrogen 27 mg/dL (7-20) 20 mg/dL (7-20) Creatinine 3.4 mg/dL (0.6-1.0) 1.4 mg/dL (0.6-1.0) Estimated GFR (Cockcroft-Gault) 14.1 39.3 BUN/Creatinine Ratio 8 (6-20) Glucose Level 104 mg/dL (70-99) 101 mg/dL (70-99) Lactic Acid Level 2.1 mmol/L (0.4-2.0) 0.3 mmol/L (0.4-2.0) Calcium Level 9.1 mg/dL (8.5-10.1) 7.8 mg/dL (8.5-10.1) Phosphorus Level 7.1 mg/dL (2.6-4.7) Magnesium Level 2.1 mg/dL (1.8-2.4) Total Bilirubin 0.1 mg/dL (0.2-1.0) Aspartate Amino Transf (AST/SGOT) 11 U/L (15-37) Alanine Aminotransferase (ALT/SGPT) 15 U/L (14-59) Alkaline Phosphatase 103 U/L (46-116) Creatine Kinase 152 U/L (26-192) Creatine Kinase MB (Mass) 2.0 ng/mL (0.0-3.6) Creatine Kinase MB Relative Index 1.3 % (0-4) Troponin I Quantitative < 0.017 ng/mL (0.000-0.055) SL-Ekw-B-Type Natriuretic Peptide 52 pg/mL (0-124) Total Protein 6.7 g/dL (6.4-8.2) Albumin 3.5 g/dL (3.4-5.0) Albumin/Globulin Ratio 1.1 (1.0-1.7) Lipase 230 U/L (73-393) Thyroid Stimulating Hormone (TSH) 0.655 uIU/mL (0.358-3.74) Free Thyroxine 0.79 ng/dL (0.76-1.46) Urine Collection Type Unknown Urine Color Yellow Urine Clarity Clear Urine pH 5.5 Urine Specific [place] 1.015 Urine Protein Negative mg/dL (NEG-TRACE) Urine Glucose (UA) Negative mg/dL (NEG) Urine Ketones (Stick) Negative mg/dL (NEG) Urine Blood Negative (NEG) Urine Nitrite Negative (NEG) Urine Bilirubin Negative (NEG) Urine Urobilinogen Dipstick 0.2 mg/dL (0.2 mg/dL) Urine Leukocyte Esterase Trace (NEG) Urine RBC Occ /HPF (0-2) Urine WBC 1-4 /HPF (0-4) Urine Squamous Epithelial Cells Mod /LPF Urine Bacteria Few /HPF (0-FEW) Urine Hyaline Casts Moderate /HPF Urine Mucus Slight /LPF Laboratory Tests Test 11/12/17 18:40 11/12/17 19:40 11/13/17 07:39 White Blood Count 9.9 x10^3/uL (4.0-11.0) 7.5 x10^3/uL (4.0-11.0) Red Blood Count 3.96 x10^6/uL (3.50-5.40) 3.58 x10^6/uL (3.50-5.40) Hemoglobin 13.1 g/dL (12.0-15.5) 11.8 g/dL (12.0-15.5) Hematocrit 37.8 % (36.0-47.0) 34.3 % (36.0-47.0) Mean Corpuscular Volume 96 fL (79-100) 96 fL (79-100) Mean Corpuscular Hemoglobin 33 pg (25-35) 33 pg (25-35) Mean Corpuscular Hemoglobin Concent 35 g/dL (31-37) 35 g/dL (31-37) Red Cell Distribution Width 13.0 % (11.5-14.5) 12.8 % (11.5-14.5) Platelet Count 305 x10^3/uL (140-400) 259 x10^3/uL (140-400) Neutrophils (%) (Auto) 57 % (31-73) 56 % (31-73) Lymphocytes (%) (Auto) 30 % (24-48) 31 % (24-48) Monocytes (%) (Auto) 9 % (0-9) 9 % (0-9) Eosinophils (%) (Auto) 4 % (0-3) 3 % (0-3) Basophils (%) (Auto) 1 % (0-3) 1 % (0-3) Neutrophils # (Auto) 5.6 x10^3uL (1.8-7.7) 4.2 x10^3uL (1.8-7.7) Lymphocytes # (Auto) 2.9 x10^3/uL (1.0-4.8) 2.3 x10^3/uL (1.0-4.8) Monocytes # (Auto) 0.9 x10^3/uL (0.0-1.1) 0.6 x10^3/uL (0.0-1.1) Eosinophils # (Auto) 0.4 x10^3/uL (0.0-0.7) 0.2 x10^3/uL (0.0-0.7) Basophils # (Auto) 0.0 x10^3/uL (0.0-0.2) 0.0 x10^3/uL (0.0-0.2) Prothrombin Time 11.5 SEC (11.7-14.0) Prothromb Time International Ratio 0.9 (0.8-1.1) Sodium Level 132 mmol/L (136-145) 142 mmol/L (136-145) Potassium Level 2.9 mmol/L (3.5-5.1) 3.7 mmol/L (3.5-5.1) Chloride Level 96 mmol/L (98-107) 110 mmol/L (98-107) Carbon Dioxide Level 23 mmol/L (21-32) 23 mmol/L (21-32) Anion Gap 13 (6-14) 9 (6-14) Blood Urea Nitrogen 27 mg/dL (7-20) 20 mg/dL (7-20) Creatinine 3.4 mg/dL (0.6-1.0) 1.4 mg/dL (0.6-1.0) Estimated GFR (Cockcroft-Gault) 14.1 39.3 BUN/Creatinine Ratio 8 (6-20) Glucose Level 104 mg/dL (70-99) 101 mg/dL (70-99) Lactic Acid Level 2.1 mmol/L (0.4-2.0) 0.3 mmol/L (0.4-2.0) Calcium Level 9.1 mg/dL (8.5-10.1) 7.8 mg/dL (8.5-10.1) Phosphorus Level 7.1 mg/dL (2.6-4.7) Magnesium Level 2.1 mg/dL (1.8-2.4) Total Bilirubin 0.1 mg/dL (0.2-1.0) Aspartate Amino Transf (AST/SGOT) 11 U/L (15-37) Alanine Aminotransferase (ALT/SGPT) 15 U/L (14-59) Alkaline Phosphatase 103 U/L (46-116) Creatine Kinase 152 U/L (26-192) Creatine Kinase MB (Mass) 2.0 ng/mL (0.0-3.6) Creatine Kinase MB Relative Index 1.3 % (0-4) Troponin I Quantitative < 0.017 ng/mL (0.000-0.055) ZC-Cho-Q-Type Natriuretic Peptide 52 pg/mL (0-124) Total Protein 6.7 g/dL (6.4-8.2) Albumin 3.5 g/dL (3.4-5.0) Albumin/Globulin Ratio 1.1 (1.0-1.7) Lipase 230 U/L (73-393) Thyroid Stimulating Hormone (TSH) 0.655 uIU/mL (0.358-3.74) Free Thyroxine 0.79 ng/dL (0.76-1.46) Urine Collection Type Unknown Urine Color Yellow Urine Clarity Clear Urine pH 5.5 Urine Specific [place] 1.015 Urine Protein Negative mg/dL (NEG-TRACE) Urine Glucose (UA) Negative mg/dL (NEG) Urine Ketones (Stick) Negative mg/dL (NEG) Urine Blood Negative (NEG) Urine Nitrite Negative (NEG) Urine Bilirubin Negative (NEG) Urine Urobilinogen Dipstick 0.2 mg/dL (0.2 mg/dL) Urine Leukocyte Esterase Trace (NEG) Urine RBC Occ /HPF (0-2) Urine WBC 1-4 /HPF (0-4) Urine Squamous Epithelial Cells Mod /LPF Urine Bacteria Few /HPF (0-FEW) Urine Hyaline Casts Moderate /HPF Urine Mucus Slight /LPF Assessment/Plan Assessment/Plan Impression: I suspect psychogenic nonepileptic seizures as the patient describes jerking on both sides, preserved consciousness. Migraine headache may play a role. Examination at the bedside is normal. Recommendations: MRI EEG Further studies depending on these results and her clinical course. I'm holding on starting anticonvulsants because of a low suspicion for seizures. I did discuss the pulmonary diagnosis of psychogenic nonepileptic seizures and the patient seems receptive, does understand that she has psychiatric issues. Thank you for letting me help with the patient's care. DAREN CISSE MD Nov 13, 2017 15:54
[2017-11-13] MEDS ORDERED: QUEtiapine 25 MG TABLET. PO SCH (21:00)
[2017-11-13] MEDS: diazePAM 5 MG TABLET PO PRN (23:38)
[2017-11-14] MEDS: traMADol 50 MG TABLET PO PRN (02:42)
[2017-11-14 03:14] VITALS: BP 131/104
[2017-11-14] MEDS: fentaNYL PF VIAL 100 MCG/2 ML VIAL IV PRN ×2 (03:32→08:10)
[2017-11-14 07:00] VITALS: BP 139/77
[2017-11-14] MEDS ORDERED: QUEtiapine 25 MG TABLET. PO SCH (07:30)
[2017-11-14] MEDS: PANTOPRAZOLE 40 MG TABLET.DR. PO SCH (08:22)
[2017-11-14] MEDS: GABAPENTIN 100 MG CAPSULE. PO SCH (08:22)
[2017-11-14] MEDS: SERTRALINE 25 MG TABLET. PO SCH (08:23)
[2017-11-14] MEDS: MORPHINE SULFATE 2 MG/ML VIAL. IV PRN ×3 (09:01→13:15)
[2017-11-14] MEDS ORDERED: oxyCODONE/APAP 5/325 1 TAB TABLET PO PRN (09:30)
--- NOTE | 2017-11-14 10:19 | PDOC ---
PROGRESS NOTES Assessment Problems Medical Problems: (1) Acute renal failure Status: Acute (2) Hypertension Status: Acute (3) Hypokalemia Status: Acute Suspect psychogenic nonepileptic seizures as the patient describes jerking on both sides, preserved consciousness. Migraine headache may play a role. Examination at the bedside is normal.EEG is normal. MRI is pending She also complains of whole body aches and pains. Renal failure and lactic acidosis are improving. Plan Await MRI Hold on further studies Holding on starting anticonvulsants Outpatient psychiatric workup If discharged, follow up with me in 2 months. Subjective Complains of whole body aches and pains (Note normal CPK level) Objective Vital Signs Date Time Temp Pulse Resp B/P (MAP) Pulse Ox O2 Delivery O2 Flow Rate FiO2 11/14/17 09:01 22 Room Air 11/14/17 07:00 98.6 73 139/77 (97) 95 98.6 Intake and Output 11/14/17 07:00 Intake Total 600 ml Output Total 100 ml Balance 500 ml Intake Oral 600 ml Output Urine Total 100 ml # Voids 3 PHYSICAL EXAM Alert. Oriented to time, place and person. PERRL. EOMI. CN: no focal findings. Muscle tone: normal. Muscle strength: 5/5 DTR: 2+ Plantar reflex: flexor Gait: not examined in bed. Sensory exam: no abnormal findings. No cerebellar signs elicited. Review of Relevant I have reviewed the following items aylin (where applicable) has been applied. Labs Laboratory Tests Test 11/12/17 18:40 11/12/17 19:40 11/13/17 07:39 White Blood Count 9.9 x10^3/uL (4.0-11.0) 7.5 x10^3/uL (4.0-11.0) Red Blood Count 3.96 x10^6/uL (3.50-5.40) 3.58 x10^6/uL (3.50-5.40) Hemoglobin 13.1 g/dL (12.0-15.5) 11.8 g/dL (12.0-15.5) Hematocrit 37.8 % (36.0-47.0) 34.3 % (36.0-47.0) Mean Corpuscular Volume 96 fL (79-100) 96 fL (79-100) Mean Corpuscular Hemoglobin 33 pg (25-35) 33 pg (25-35) Mean Corpuscular Hemoglobin Concent 35 g/dL (31-37) 35 g/dL (31-37) Red Cell Distribution Width 13.0 % (11.5-14.5) 12.8 % (11.5-14.5) Platelet Count 305 x10^3/uL (140-400) 259 x10^3/uL (140-400) Neutrophils (%) (Auto) 57 % (31-73) 56 % (31-73) Lymphocytes (%) (Auto) 30 % (24-48) 31 % (24-48) Monocytes (%) (Auto) 9 % (0-9) 9 % (0-9) Eosinophils (%) (Auto) 4 % (0-3) 3 % (0-3) Basophils (%) (Auto) 1 % (0-3) 1 % (0-3) Neutrophils # (Auto) 5.6 x10^3uL (1.8-7.7) 4.2 x10^3uL (1.8-7.7) Lymphocytes # (Auto) 2.9 x10^3/uL (1.0-4.8) 2.3 x10^3/uL (1.0-4.8) Monocytes # (Auto) 0.9 x10^3/uL (0.0-1.1) 0.6 x10^3/uL (0.0-1.1) Eosinophils # (Auto) 0.4 x10^3/uL (0.0-0.7) 0.2 x10^3/uL (0.0-0.7) Basophils # (Auto) 0.0 x10^3/uL (0.0-0.2) 0.0 x10^3/uL (0.0-0.2) Prothrombin Time 11.5 SEC (11.7-14.0) Prothromb Time International Ratio 0.9 (0.8-1.1) Sodium Level 132 mmol/L (136-145) 142 mmol/L (136-145) Potassium Level 2.9 mmol/L (3.5-5.1) 3.7 mmol/L (3.5-5.1) Chloride Level 96 mmol/L (98-107) 110 mmol/L (98-107) Carbon Dioxide Level 23 mmol/L (21-32) 23 mmol/L (21-32) Anion Gap 13 (6-14) 9 (6-14) Blood Urea Nitrogen 27 mg/dL (7-20) 20 mg/dL (7-20) Creatinine 3.4 mg/dL (0.6-1.0) 1.4 mg/dL (0.6-1.0) Estimated GFR (Cockcroft-Gault) 14.1 39.3 BUN/Creatinine Ratio 8 (6-20) Glucose Level 104 mg/dL (70-99) 101 mg/dL (70-99) Lactic Acid Level 2.1 mmol/L (0.4-2.0) 0.3 mmol/L (0.4-2.0) Calcium Level 9.1 mg/dL (8.5-10.1) 7.8 mg/dL (8.5-10.1) Phosphorus Level 7.1 mg/dL (2.6-4.7) Magnesium Level 2.1 mg/dL (1.8-2.4) Total Bilirubin 0.1 mg/dL (0.2-1.0) Aspartate Amino Transf (AST/SGOT) 11 U/L (15-37) Alanine Aminotransferase (ALT/SGPT) 15 U/L (14-59) Alkaline Phosphatase 103 U/L (46-116) Creatine Kinase 152 U/L (26-192) Creatine Kinase MB (Mass) 2.0 ng/mL (0.0-3.6) Creatine Kinase MB Relative Index 1.3 % (0-4) Troponin I Quantitative < 0.017 ng/mL (0.000-0.055) HU-Zds-S-Type Natriuretic Peptide 52 pg/mL (0-124) Total Protein 6.7 g/dL (6.4-8.2) Albumin 3.5 g/dL (3.4-5.0) Albumin/Globulin Ratio 1.1 (1.0-1.7) Lipase 230 U/L (73-393) Thyroid Stimulating Hormone (TSH) 0.655 uIU/mL (0.358-3.74) Free Thyroxine 0.79 ng/dL (0.76-1.46) Urine Collection Type Unknown Urine Color Yellow Urine Clarity Clear Urine pH 5.5 Urine Specific [place] 1.015 Urine Protein Negative mg/dL (NEG-TRACE) Urine Glucose (UA) Negative mg/dL (NEG) Urine Ketones (Stick) Negative mg/dL (NEG) Urine Blood Negative (NEG) Urine Nitrite Negative (NEG) Urine Bilirubin Negative (NEG) Urine Urobilinogen Dipstick 0.2 mg/dL (0.2 mg/dL) Urine Leukocyte Esterase Trace (NEG) Urine RBC Occ /HPF (0-2) Urine WBC 1-4 /HPF (0-4) Urine Squamous Epithelial Cells Mod /LPF Urine Bacteria Few /HPF (0-FEW) Urine Hyaline Casts Moderate /HPF Urine Mucus Slight /LPF Medications Current Medications Sodium Chloride 1,000 ml @ 1,000 mls/hr 1X ONCE IV Last administered on at 20:12; Start 11/12/17 at 18:30; Stop 11/12/17 at 19:29; Status DC Sodium Chloride 1,000 ml @ 1,000 mls/hr Q1H IV Last administered on 11/12/17at 19:05; Start 11/12/17 at 18:27; Stop 11/12/17 at 19:26; Status DC Dexamethasone Sodium Phosphate (Decadron) 10 mg 1X ONCE IV ; Start 11/12/17 at 18:30; Stop 11/12/17 at 18:31; Status DC Potassium Chloride (Klor-Con) 40 meq 1X ONCE PO Last administered on 11/12/17at 20:12; Start 11/12/17 at 19:30; Stop 11/12/17 at 19:31; Status DC Potassium Chloride/Sodium Chloride 1,000 ml @ 250 mls/hr 1X ONCE IV Last administered on 11/12/17at 20:11; Start 11/12/17 at 19:30; Stop 11/12/17 at 23:29; Status DC Ringer's Solution 1,000 ml @ 150 mls/hr 1X ONCE IV ; Start 11/12/17 at 20:00; Stop 11/13/17 at 02:39; Status DC Diazepam (Valium) 5 mg PRN Q6HRS PRN PO ANXIETY / AGITATION Last administered on 11/13/17at 23:38; Start 11/12/17 at 20:15 Metoclopramide HCl (Reglan) 5 mg QIDACHS PO ; Start 11/12/17 at 21:00; Stop at 23:24; Status DC Ondansetron HCl (Zofran Odt) 4 mg PRN TID PRN PO NAUSEA/VOMITING Last administered on 11/14/17at 02:43; Start 11/12/17 at 20:15 Pantoprazole Sodium (Protonix) 40 mg DAILYAC PO Last administered on 11/14/17at 08:22; Start 11/13/17 at 07:30 Tramadol HCl (Ultram) 50 mg PRN Q6HRS PRN PO pain Last administered on at 02:42; Start 11/12/17 at 20:15 Albuterol Sulfate (Ventolin Neb Soln) 2.5 mg PRN Q4HRS PRN NEB SHORTNESS OF BREATH; Start 11/12/17 at 20:30 Mirtazapine (Remeron) 30 mg QHS PO ; Start 11/12/17 at 21:00; Stop 11/12/17 at 23: 24; Status DC Non-Formulary Medication (Tiotropium [place] (Spiriva)) 1 cap DAILY IH ; Start 11/13/17 at 09:00; Status UNV Tizanidine HCl (Zanaflex) 4 mg PRN Q6HRS PRN PO MUSCLE SPASMS Last administered on 11/13/17at 23:38; Start 11/12/17 at 20:30 Triamterene/HCTZ (Maxzide 37.5/ 25mg) 1 tab DAILY PO ; Start 11/13/17 at 09:00; Stop 11/13/17 at 09:00; Status DC Venlafaxine HCl (Effexor) 50 mg TID PO ; Start 11/12/17 at 21:00; Stop 11/12/17 at 23:24; Status DC Sertraline HCl (Zoloft) 50 mg DAILY PO ; Start 11/13/17 at 09:00; Stop 11/13/17 at 09:00; Status DC Nicotine (Nicoderm Cq 21mg) 1 patch PRN DAILY PRN TD SMOKING CESSATION 1ST CHOICE Last administered on 11/14/17at 08:21; Start 11/12/17 at 20:30 Nicotine Polacrilex (Nicorette Gum) 1 each PRN Q1HR PRN BC SMOKING CESSATION 2ND CHOICE; Start 11/12/17 at 20:30 Sodium Chloride 1,000 ml @ 100 mls/hr 1X ONCE IV Last administered on at 22:44; Start 11/12/17 at 20:30; Stop 11/13/17 at 06:29; Status DC Albuterol/ Ipratropium (Duoneb) 3 ml RTQID NEB ; Start 11/13/17 at 08:00 Sumatriptan Succinate (Imitrex) 100 mg PRN DAILY PRN PO MIGRAINE HEADACHE; Start 11/12/17 at 23:15 Gabapentin (Neurontin) 100 mg TID PO Last administered on 11/14/17at 08:22; Start 11/13/17 at 09:00 Quetiapine Fumarate (SEROquel) 25 mg TID PO Last administered on 11/13/17at 14:53 ; Start 11/13/17 at 09:00; Stop 11/13/17 at 21:02; Status DC Quetiapine Fumarate (SEROquel) 50 mg QHS PO Last administered on 11/13/17at 20:52 ; Start 11/13/17 at 21:00 Sertraline HCl (Zoloft) 75 mg DAILY PO Last administered on 11/14/17at 08:23; Start 11/13/17 at 09:00 Zolpidem Tartrate (Ambien) 5 mg PRN QHS PRN PO INSOMNIA; Start 11/12/17 at 23:30 Sodium Chloride 1,000 ml @ 150 mls/hr 1X ONCE IV Last administered on at 14:54; Start 11/13/17 at 12:00; Stop 11/13/17 at 18:39; Status DC Sodium Chloride 1,000 ml @ 0 mls/hr 1X ONCE IV Last administered on 11/13/17at 13:30; Start 11/13/17 at 12:00; Stop 11/13/17 at 12:01; Status DC Quetiapine Fumarate (SEROquel) 25 mg TIDAC PO Last administered on 11/14/17at 08: 23; Start 11/14/17 at 07:30 Fentanyl Citrate (Fentanyl 2ml Vial) 50 mcg PRN Q4HRS PRN IV PAIN Last administered on 11/14/17at 03:32; Start 11/14/17 at 03:30 Morphine Sulfate (Morphine Sulfate) 2 mg PRN Q2HR PRN IV MODERATE PAIN Last administered on 11/14/17at 09:01; Start 11/14/17 at 08:45 Oxycodone/ Acetaminophen (Percocet 5/325) 1 tab PRN Q4HRS PRN PO MODERATE TO SEVERE PAIN; Start 11/14/17 at 09:30 Active Scripts Active Tramadol Hcl 50 Mg Tablet 50 Mg PO Q12H PRN Ondansetron Odt (Ondansetron) 4 Mg Tab.rapdis 4 Mg PO TID PRN Zofran Odt (Ondansetron) 4 Mg Tab.rapdis 1 Tab SL Q6HRS PRN Diazepam 5 Mg Tablet 5 Mg PO PRN Q6HRS PRN Reported Gabapentin 300 Mg Capsule 300 Mg PO TID Sumatriptan Succinate 100 Mg Tablet 100 Mg PO ONCE PRN Seroquel (Quetiapine Fumarate) 50 Mg Tablet 1 Tab PO QHS Seroquel (Quetiapine Fumarate) 25 Mg Tablet 1 Tab PO TID Zoloft (Sertraline Hcl) 25 Mg Tablet 75 Mg PO DAILY Chantix (Varenicline Tartrate) 1 Mg Tablet 1 Mg PO DAILY Ventolin Hfa Inhaler (Albuterol Sulfate) 18 Gm Hfa.aer.ad 2 Puff INH Q4HRS PRN Spiriva (Tiotropium [place]) 18 Mcg Cap.w.dev 1 Cap IH DAILY Tizanidine Hcl 4 Mg Tablet 4 Mg PO PRN Q6HRS PRN Morphine Sulfate 30 Mg Tablet 30 Mg PO PRN Q6HRS PRN Pantoprazole Sodium 40 Mg Tablet.dr 40 Mg PO DAILY Vitals/I & O Vital Sign - Last 24 Hours 11/13/17 11/13/17 11/13/17 11/13/17 11:00 13:21 15:00 18:40 Temp 97.7 98.5 97.7 98.5 Pulse 76 75 75 Resp 18 22 B/P (MAP) 93/56 (68) 99/63 (75) 92/63 (73) Pulse Ox 100 97 O2 Delivery Room Air Room Air 11/13/17 11/13/17 11/13/17 11/13/17 19:00 19:45 20:05 23:02 Temp 97.9 98.8 97.9 98.8 Pulse 85 90 Resp 20 20 B/P (MAP) 102/72 (82) 97/61 (73) Pulse Ox 94 94 92 O2 Delivery Room Air Room Air Room Air Room Air 11/14/17 11/14/17 11/14/17 11/14/17 02:42 03:14 03:32 03:35 Temp 97.4 97.4 Pulse 92 Resp 22 20 22 22 B/P (MAP) 131/104 (113) Pulse Ox 94 O2 Delivery Room Air Room Air Room Air 11/14/17 11/14/17 11/14/17 04:05 07:00 09:01 Temp 98.6 98.6 Pulse 73 Resp 17 22 B/P (MAP) 139/77 (97) Pulse Ox 94 95 O2 Delivery Room Air Room Air Room Air Intake and Output 11/13/17 11/13/17 11/14/17 15:00 23:00 07:00 Intake Total 600 ml Output Total 100 ml Balance 600 ml -100 ml DAREN CISSE MD Nov 14, 2017 10:19
[2017-11-14] MEDS: diazePAM 5 MG TABLET PO PRN (10:32)
[2017-11-14 11:00] VITALS: BP 108/70
--- NOTE | 2017-11-14 11:10 | PDOC ---
SUBJECTIVE ROS Pt c/o pain- generalized, chronic as per RN UA culture from 3rd Positive OBJECTIVE Vital Signs Vital Signs Date Time Temp Pulse Resp B/P (MAP) Pulse Ox O2 Delivery O2 Flow Rate FiO2 11/14/17 09:01 22 Room Air 11/14/17 07:00 98.6 73 139/77 (97) 95 98.6 I & 0 Intake and Output 11/14/17 07:00 Intake Total 600 ml Output Total 100 ml Balance 500 ml Intake Oral 600 ml Output Urine Total 100 ml # Voids 3 PHYSICAL EXAM Physical Exam HEENT: neck supple Lungs- CTA, Non labored Heart: RRR, no thrills, no gallops, no murmurs Abdomen: Soft, ostomy, liquid stool Extremities: No edema Skin: No rashes Neuro: Normal speech, Sensation intact Psych/Mental Status: Mental status NL, Mood NL - No CVA/ cp TENDERNESS, nO GALLAGHER DIAGNOSIS/ASSESSMENT Assessment & Plan PATRIA - Likely pre-renal /?diarrhea from ostomy Renal US normal , UA Normal - No sign micr hematuria or UTI Renal function improving with Hydration , no labs done today E-lytes and acid base stable Significant Hx of assisted use of NSAID's Hypokalemia- resolved 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 her previous labs available in our system No DM/HTN Syncope -Aggressive hydration in ER Neurology on board ,Pt getting MRI Discussed with Pt and RN COMMENT/RELEVANT DATA Meds Current Medications Medications (Trade) Dose Ordered Sig/Leeroy Start Time Stop Time Status Last Admin Dose Admin Albuterol Sulfate (Ventolin Neb Soln) 2.5 mg PRN Q4HRS PRN 11/12/17 20:30 Albuterol/ Ipratropium (Duoneb) 3 ml RTQID 11/13/17 08:00 Dexamethasone Sodium Phosphate (Decadron) 10 mg 1X ONCE 11/12/17 18:30 11/12/17 18:31 DC Diazepam (Valium) 5 mg PRN Q6HRS PRN 11/12/17 20:15 11/14/17 10:32 5 MG Fentanyl Citrate (Fentanyl 2ml Vial) 50 mcg PRN Q4HRS PRN 11/14/17 03:30 11/14/17 03:32 50 MCG Gabapentin (Neurontin) 100 mg TID 11/13/17 09:00 11/14/17 08:22 100 MG Metoclopramide HCl (Reglan) 5 mg QIDACHS 11/12/17 21:00 11/12/17 23:24 DC Mirtazapine (Remeron) 30 mg QHS 11/12/17 21:00 11/12/17 23:24 DC Morphine Sulfate (Morphine Sulfate) 2 mg PRN Q2HR PRN 11/14/17 08:45 11/14/17 09:01 2 MG Nicotine (Nicoderm Cq 21mg) 1 patch PRN DAILY PRN 11/12/17 20:30 11/14/17 08:21 1 PATCH Nicotine Polacrilex (Nicorette Gum) 1 each PRN Q1HR PRN 11/12/17 20:30 Non-Formulary Medication (Tiotropium [place] (Spiriva)) 1 cap DAILY 11/13/17 09:00 UNV Ondansetron HCl (Zofran Odt) 4 mg PRN TID PRN 11/12/17 20:15 11/14/17 02:43 4 MG Oxycodone/ Acetaminophen (Percocet 5/325) 1 tab PRN Q4HRS PRN 11/14/17 09:30 Pantoprazole Sodium (Protonix) 40 mg DAILYAC 11/13/17 07:30 11/14/17 08:22 40 MG Potassium Chloride/Sodium Chloride 1,000 ml @ 250 mls/hr 1X ONCE 11/12/17 19:30 11/12/17 23:29 DC 11/12/17 20:11 250 MLS/HR Potassium Chloride (Klor-Con) 40 meq 1X ONCE 11/12/17 19:30 11/12/17 19:31 DC 11/12/17 20:12 40 MEQ Quetiapine Fumarate (SEROquel) 25 mg TIDAC 11/14/17 07:30 11/14/17 08:23 25 MG Ringer's Solution 1,000 ml @ 150 mls/hr 1X ONCE 11/12/17 20:00 11/13/17 02:39 DC Sertraline HCl (Zoloft) 75 mg DAILY 11/13/17 09:00 11/14/17 08:23 75 MG Sodium Chloride 1,000 ml @ 0 mls/hr 1X ONCE 11/13/17 12:00 11/13/17 12:01 DC 11/13/17 13:30 1,000 MLS/HR Sumatriptan Succinate (Imitrex) 100 mg PRN DAILY PRN 11/12/17 23:15 Tizanidine HCl (Zanaflex) 4 mg PRN Q6HRS PRN 11/12/17 20:30 11/13/17 23:38 4 MG Tramadol HCl (Ultram) 50 mg PRN Q6HRS PRN 11/12/17 20:15 11/14/17 02:42 50 MG Triamterene/HCTZ (Maxzide 37.5/ 25mg) 1 tab DAILY 11/13/17 09:00 11/13/17 09:00 DC Venlafaxine HCl (Effexor) 50 mg TID 11/12/17 21:00 11/12/17 23:24 DC Zolpidem Tartrate (Ambien) 5 mg PRN QHS PRN 11/12/17 23:30 Results All relevant outside records, renal labs, imaging studies, telemetry/EKG's were reviewed. KAYLEEN EWING MD Nov 14, 2017 11:10
[2017-11-14] MEDS ORDERED: GADOBUTROL 7.5 MMOL/7.5 ML VIAL IV ONE (11:30)
--- NOTE | 2017-11-14 11:51 | EEG ---
DATE OF SERVICE: 11/14/2017 LOCATION: Room 526 EEG NUMBER: [id number] OBJECTIVE: The patient is a 51-year-old female with episodes of syncope, presyncope, eyes rolling back in her head. DESCRIPTION: This is a digital study. Electrodes are placed according to the international 10-20 system. Bipolar and referential montages are available. Activation procedures typically include hyperventilation and intermittent photic stimulation. INTERPRETATION: The waking background consists of 9 Hz, 50-100 microvolt activity, symmetrically distributed over parietooccipital regions and reactive to eye opening. There is frontally predominant slow activity with maximum amplitude in the eye leads. This is consistent with eye movements rather than from cerebral origin. Hyperventilation and intermittent photic stimulation are noncontributory. Stage 1 sleep is achieved with normal electroencephalogram patterns. IMPRESSION: This electroencephalogram with the patient awake and asleep is within normal limits. There is no focal, paroxysmal, or epileptiform activity. Thank you for letting us help with the patient's care. DAREN CISSE MD DR: TRUNG/marie JOB#: [id number] / [id number] Kaila Arreola MD, WILLIAM MD
[2017-11-14] MEDS ORDERED: MORP30TA PO (12:15)
--- NOTE | 2017-11-14 12:50 | PDOC3 ---
Discharge Summary Visit Information Date of Admission: Nov 12, 2017 Date of Discharge: Nov 14, 2017 Admitting Diagnosis Comment: Suspect psychogenic nonepileptic seizures NArc dependence Final Diagnosis Problems Medical Problems: (1) Acute renal failure Status: Acute (2) Hypertension Status: Acute (3) Hypokalemia Status: Acute Brief Hospital Course Allergies Allergies Coded Allergies Type Severity Reaction Last Updated Verified aspirin Allergy Severe Anaphylaxis; TOLERATES IBUPROFEN 10/29/16 Yes Iodinated Contrast- Oral and IV Dye Allergy Intermediate Hives 02/26/17 Yes prochlorperazine Allergy Intermediate 09/02/15 Yes metoclopramide Allergy Mild restless leg 11/12/17 Yes venlafaxine Allergy Mild 11/12/17 Yes lorazepam Adverse Reaction Intermediate 02/26/17 Yes Corticosteroids (Glucocorticoids) Adverse Reaction Mild RESTLESS LEG 09/02/15 Yes fluticasone Adverse Reaction Mild 09/02/15 Yes salmeterol Adverse Reaction Mild 09/02/15 Yes Vital Signs Vital Signs Date Time Temp Pulse Resp B/P (MAP) Pulse Ox O2 Delivery O2 Flow Rate FiO2 11/14/17 11:00 98.5 76 18 108/70 (83) 96 Room Air 98.5 Lab Results Laboratory Tests Test 11/12/17 18:40 11/12/17 19:40 11/13/17 07:39 White Blood Count 9.9 x10^3/uL (4.0-11.0) 7.5 x10^3/uL (4.0-11.0) Red Blood Count 3.96 x10^6/uL (3.50-5.40) 3.58 x10^6/uL (3.50-5.40) Hemoglobin 13.1 g/dL (12.0-15.5) 11.8 g/dL (12.0-15.5) Hematocrit 37.8 % (36.0-47.0) 34.3 % (36.0-47.0) Mean Corpuscular Volume 96 fL (79-100) 96 fL (79-100) Mean Corpuscular Hemoglobin 33 pg (25-35) 33 pg (25-35) Mean Corpuscular Hemoglobin Concent 35 g/dL (31-37) 35 g/dL (31-37) Red Cell Distribution Width 13.0 % (11.5-14.5) 12.8 % (11.5-14.5) Platelet Count 305 x10^3/uL (140-400) 259 x10^3/uL (140-400) Neutrophils (%) (Auto) 57 % (31-73) 56 % (31-73) Lymphocytes (%) (Auto) 30 % (24-48) 31 % (24-48) Monocytes (%) (Auto) 9 % (0-9) 9 % (0-9) Eosinophils (%) (Auto) 4 % (0-3) 3 % (0-3) Basophils (%) (Auto) 1 % (0-3) 1 % (0-3) Neutrophils # (Auto) 5.6 x10^3uL (1.8-7.7) 4.2 x10^3uL (1.8-7.7) Lymphocytes # (Auto) 2.9 x10^3/uL (1.0-4.8) 2.3 x10^3/uL (1.0-4.8) Monocytes # (Auto) 0.9 x10^3/uL (0.0-1.1) 0.6 x10^3/uL (0.0-1.1) Eosinophils # (Auto) 0.4 x10^3/uL (0.0-0.7) 0.2 x10^3/uL (0.0-0.7) Basophils # (Auto) 0.0 x10^3/uL (0.0-0.2) 0.0 x10^3/uL (0.0-0.2) Prothrombin Time 11.5 SEC (11.7-14.0) Prothromb Time International Ratio 0.9 (0.8-1.1) Sodium Level 132 mmol/L (136-145) 142 mmol/L (136-145) Potassium Level 2.9 mmol/L (3.5-5.1) 3.7 mmol/L (3.5-5.1) Chloride Level 96 mmol/L (98-107) 110 mmol/L (98-107) Carbon Dioxide Level 23 mmol/L (21-32) 23 mmol/L (21-32) Anion Gap 13 (6-14) 9 (6-14) Blood Urea Nitrogen 27 mg/dL (7-20) 20 mg/dL (7-20) Creatinine 3.4 mg/dL (0.6-1.0) 1.4 mg/dL (0.6-1.0) Estimated GFR (Cockcroft-Gault) 14.1 39.3 BUN/Creatinine Ratio 8 (6-20) Glucose Level 104 mg/dL (70-99) 101 mg/dL (70-99) Lactic Acid Level 2.1 mmol/L (0.4-2.0) 0.3 mmol/L (0.4-2.0) Calcium Level 9.1 mg/dL (8.5-10.1) 7.8 mg/dL (8.5-10.1) Phosphorus Level 7.1 mg/dL (2.6-4.7) Magnesium Level 2.1 mg/dL (1.8-2.4) Total Bilirubin 0.1 mg/dL (0.2-1.0) Aspartate Amino Transf (AST/SGOT) 11 U/L (15-37) Alanine Aminotransferase (ALT/SGPT) 15 U/L (14-59) Alkaline Phosphatase 103 U/L (46-116) Creatine Kinase 152 U/L (26-192) Creatine Kinase MB (Mass) 2.0 ng/mL (0.0-3.6) Creatine Kinase MB Relative Index 1.3 % (0-4) Troponin I Quantitative < 0.017 ng/mL (0.000-0.055) BJ-Oeq-O-Type Natriuretic Peptide 52 pg/mL (0-124) Total Protein 6.7 g/dL (6.4-8.2) Albumin 3.5 g/dL (3.4-5.0) Albumin/Globulin Ratio 1.1 (1.0-1.7) Lipase 230 U/L (73-393) Thyroid Stimulating Hormone (TSH) 0.655 uIU/mL (0.358-3.74) Free Thyroxine 0.79 ng/dL (0.76-1.46) Urine Collection Type Unknown Urine Color Yellow Urine Clarity Clear Urine pH 5.5 Urine Specific [place] 1.015 Urine Protein Negative mg/dL (NEG-TRACE) Urine Glucose (UA) Negative mg/dL (NEG) Urine Ketones (Stick) Negative mg/dL (NEG) Urine Blood Negative (NEG) Urine Nitrite Negative (NEG) Urine Bilirubin Negative (NEG) Urine Urobilinogen Dipstick 0.2 mg/dL (0.2 mg/dL) Urine Leukocyte Esterase Trace (NEG) Urine RBC Occ /HPF (0-2) Urine WBC 1-4 /HPF (0-4) Urine Squamous Epithelial Cells Mod /LPF Urine Bacteria Few /HPF (0-FEW) Urine Hyaline Casts Moderate /HPF Urine Mucus Slight /LPF Brief Hospital Course Ms. Moralez is a 51 old admitted for acute renal failure which is VMN and that has resolved, hypotension likely secondary to narcotics and mild hypokalemia. She had some jerking movements comanagement with neurology. MRI and EEG done. If negative home today. Assessed to have most likely psychogenic nonepileptic seizures. I have provided all the copies of her imaging which were negative. Course remarkable for requiring narcotics every 2 hours here in the hospital. On known MS short-acting morphine at home I have Rx'd. Otherwise no other new meds I'm distraught about her narcotic dependence Consults performed neurology Procedures performed multiple imaging No new home meds Needs an outpatient psychiatrist Discharge Information Condition at Discharge: Improved, Stable Disposition/Orders: D/C to Home Scheduled Gabapentin (Gabapentin) 300 Mg Capsule, 300 MG PO TID, (Reported) Entered as Reported by: SALVADOR HERNANDEZ on 11/12/172232 Last Action: Converted on 11/12/172315 by SALVADOR HERNANDEZ Pantoprazole Sodium (Pantoprazole Sodium) 40 Mg Tablet.dr, 40 MG PO DAILY, #60 ( Reported) Entered as Reported by: EUGENE MO on 09/02/15 0235 Last Action: Reviewed on 11/12/172232 by SALVADOR HERNANDEZ Quetiapine Fumarate (Seroquel) 25 Mg Tablet, 1 TAB PO TID, #30 Ref 2 (Reported) Entered as Reported by: SALVADOR HERNANDEZ on 11/12/172232 Last Action: Converted on 11/12/172315 by SALVADOR HERNANDEZ Quetiapine Fumarate (Seroquel) 50 Mg Tablet, 1 TAB PO QHS, #30 Ref 2 (Reported) Entered as Reported by: SALVADOR HERNANDEZ on 11/12/172232 Last Action: Converted on 11/12/172315 by SALVADOR EHRNANDEZ Sertraline Hcl (Zoloft) 25 Mg Tablet, 75 MG PO DAILY for ANTI-DEPRESSANT, Ref 0 (Reported) Entered as Reported by: SALVADOR HERNANDEZ on 11/12/172232 Last Action: Converted on 11/12/172315 by SALVADOR HERNANDEZ Tiotropium [place] (Spiriva) 18 Mcg Cap.w.dev, 1 CAP IH DAILY, #30 Ref 3 ( Reported) Entered as Reported by: ARTEMIO SHAH on 10/28/161932 Last Action: Reviewed on 11/12/172232 by SALVADOR HERNANDEZ Varenicline Tartrate (Chantix) 1 Mg Tablet, 1 MG PO DAILY, (Reported) Entered as Reported by: ARTEMIO SHAH on 10/28/161932 Last Action: HELD on 11/12/172315 by SALVADOR HERNANDEZ Scheduled PRN Albuterol Sulfate (Ventolin Hfa Inhaler) 18 Gm Hfa.aer.ad, 2 PUFF INH Q4HRS PRN for SHORTNESS OF BREATH, Ref 0 (Reported) Entered as Reported by: ARTEMIO SHAH on 10/28/161932 Last Action: Reviewed on 11/12/172232 by SALVADOR HERNANDEZ Diazepam (Diazepam) 5 Mg Tablet, 5 MG PO PRN Q6HRS PRN for ANXIETY / AGITATION, #30 Ref 0 Prescribed by: ESTUARDO XIONG on 03/01/171031 Last Action: Reviewed on 11/12/172232 by SALVADOR HERNANDEZ Morphine Sulfate (Morphine Sulfate) 30 Mg Tablet, 30 MG PO PRN Q6HRS PRN for PAIN for 14 Days, #180 Prescribed by: DAYRON JAIMES on 11/14/17 1215 Ondansetron (Zofran Odt) 4 Mg Tab.rapdis, 1 TAB SL Q6HRS PRN for NAUSEA, #16 Prescribed by: ESTUARDO XIONG on 03/01/17 1032 Last Action: HELD on 11/12/172315 by SALVADOR HERNANDEZ Ondansetron (Ondansetron Odt) 4 Mg Tab.rapdis, 4 MG PO TID PRN for NAUSEA/ VOMITING, #30 Ref 2 Prescribed by: ANTWAN BARBA D.O. on 11/10/17 1525 Last Action: Reviewed on 11/12/172232 by SALVADOR HERNANDEZ Sumatriptan Succinate (Sumatriptan Succinate) 100 Mg Tablet, 100 MG PO ONCE PRN for MIGRAINE HEADACHE, (Reported) Entered as Reported by: SAVLADOR HERNANDEZ on 11/12/172232 Last Action: Continued on 11/12/172315 by SALVADOR HERNANDEZ Tizanidine Hcl (Tizanidine Hcl) 4 Mg Tablet, 4 MG PO PRN Q6HRS PRN for MUSCLE SPASMS, #120 (Reported) Entered as Reported by: EUGENE MO on 09/02/15234 Last Action: Reviewed on 11/12/172232 by SALVADOR HERNANDEZ Tramadol Hcl (Tramadol Hcl) 50 Mg Tablet, 50 MG PO Q12H PRN for severe pain, #30 Prescribed by: ANTWAN BARBA D.O. on 11/10/17 152 Last Action: Reviewed on 11/12/172232 by SALVADOR HERNANDEZ Discontinued Medications Mirtazapine (Mirtazapine) 30 Mg Tab.rapdis, 30 MG PO QHS, #30 (Reported) Entered as Reported by: EUGENE MO on 09/02/15234 Last Action: Discontinued on 11/12/172232 by SALVADOR HERNANDEZ Triamterene/Hydrochlorothiazid (Triamterene-Hctz 37.5-25 Mg Cp) 1 Each Capsule, 1 TAB PO DAILY, #30 (Reported) Entered as Reported by: EUGENE MO on 09/02/15234 Last Action: Discontinued on 11/12/172232 by SALVADOR HERNANDEZ Venlafaxine Hcl (Venlafaxine Hcl) 50 Mg Tablet, 50 MG PO TID, (Reported) Entered as Reported by: ARTEMIO SHAH on 10/28/161932 Last Action: Discontinued on 11/12/172232 by DAYRON GARCIA MD Nov 14, 2017 12:50
--- NOTE | 2017-11-14 14:50 | RAD ---
MRI of the brain without contrast 11/14/2017 Clinical History: Seizure. Unresponsive headaches. Technique: Unenhanced T1-weighted sagittal and axial and T2-weighted, FLAIR, gradient echo and diffusion-weighted axial images of the brain were obtained. T2-weighted coronal images were unable to be obtained due to patient discomfort. Findings: There is a study is dated 09/02/2015. The ventricles and sulci are within normal limits in size and configuration. Patchy and a few small scattered areas of increased signal intensity are seen within the periventricular and subcortical white matter of both cerebral hemispheres on the FLAIR and T2-weighted images consistent most likely with areas of very mild small vessel ischemic disease. No acute parenchymal abnormality is seen. No extra-axial fluid collection is seen. There is no MRI evidence of acute ischemia/infarction. Mild to moderate mucosal thickening is seen scattered throughout the paranasal sinuses. A 1.3 cm mucous retention cyst is seen involving the right maxillary sinus. A 1.6 cm mucous retention cyst is seen involving the left maxillary sinus. There are small bilateral mastoid effusions. Normal flow voids are seen within the major vascular structures surrounding the brain parenchyma. Impression: No acute parenchymal abnormality is seen. Electronically signed by: Octavio Beck MD (11/14/2017 2:47 PM) [id number]
[2017-11-15] MEDS ORDERED: TRAZ-85 PO (20:11)
[2017-11-15] MEDS ORDERED: CYCL10TA2 PO (20:11)
[2017-11-15] MEDS ORDERED: QUET25TA5 PO (20:11)
[2017-11-15] MEDS ORDERED: POTA10TA12 PO (20:11)
[2017-11-15] MEDS ORDERED: SERT50TA PO (20:11)
[2017-11-15] MEDS ORDERED: [UNRECOGNIZED DRUG - OTHER] (20:11)
[2017-11-15] MEDS ORDERED: SUMA100T3 PO (20:11)
[2017-11-16] MEDS ORDERED: TRAM50TA PO (01:29)
[2017-11-16] MEDS ORDERED: TRAZ-85 PO (01:29)
== END 2017-11-14 14:13 | disposition home or self-care (01) | DRG 683 ==
LOC: ER 17:43 → 5 NORTH 19:20
PROVIDERS: ADMIT Internal Medicine; ATTEND Internal Medicine
DX: N17.0 Acute kidney failure with tubular necrosis (principal); E87.2 Acidosis; K50.90 Crohn's disease, unspecified, without complications; E83.39 Other disorders of phosphorus metabolism; I11.0 Hypertensive heart disease with heart failure; I50.9 Heart failure, unspecified; E87.6 Hypokalemia; E78.00 Pure hypercholesterolemia, unspecified; E78.5 Hyperlipidemia, unspecified; F17.210 Nicotine dependence, cigarettes, uncomplicated; F32.9 Major depressive disorder, single episode, unspecified; F43.10 Post-traumatic stress disorder, unspecified; F90.9 Attention-deficit hyperactivity disorder, unspecified type; G25.81 Restless legs syndrome; G43.909 Migraine, unspecified, not intractable, without status migrainosus; G89.29 Other chronic pain; H40.9 Unspecified glaucoma; T40.695A Adverse effect of other narcotics, initial encounter; M19.90 Unspecified osteoarthritis, unspecified site; J44.9 Chronic obstructive pulmonary disease, unspecified; R56.9 Unspecified convulsions; Z79.899 Other long term (current) drug therapy; Z82.3 Family history of stroke; Z82.49 Family history of ischemic heart disease and other diseases of the circulatory system; Y92.89 Other specified places as the place of occurrence of the external cause; Z90.710 Acquired absence of both cervix and uterus; Z93.3 Colostomy status; Z88.8 Allergy status to other drugs, medicaments and biological substances; Z88.6 Allergy status to analgesic agent; Z88.3 Allergy status to other anti-infective agents; Z91.041 Radiographic dye allergy status; Z90.49 Acquired absence of other specified parts of digestive tract
CPT/HCPCS: 36415; 70551; 71045; 71120; 76770; 80048; 80053; 81001; 82553; 83605; 83690; 83735; 83880; 84100; 84439; 84443; 84484; 85025; 85610; 87086; 93005; 94760; 95816; 96361; 96365; J2270; J3010; J7030; Q0162; 99291-25